=== PATIENT | male | born 1935 | race Caucasian/White ===

== ENCOUNTER 2018-01-01 04:26 | Inpatient (IN) | payer MEDICARE ==
[2018-01-01] MEDS ORDERED: Naloxone HCl 2 mg/2 ml Syringe ONE (04:28)
[2018-01-01] MEDS ORDERED: Calcium Chloride 1 GM/10 ML Abboject SYRINGE ONE (04:41)
[2018-01-01 05:28] LABS: Bilirubin Negative (Negative); Blood, Urine Negative (Negative); Clarity CLEAR (Clear); Glucose, Urine (Dipstick) Negative (Negative); Leukocyte Small (Negative); Nitrite Negative (Negative); Protein, Urine (Dipstick) Negative (Neg-Trace); Specific Gravity, Urine 1.017 (1.002-1.036); Urobilinogen 0.2 mg/dL (0.2-1.0)
[2018-01-01 05:29] LABS: #Eosinphils 0.1 thou/uL (0.0-0.7); #Lymphocytes 1.7 thou/uL (1.20-3.40); #Monocytes 0.4 thou/uL (0.11-0.59); #Neutrophils 4.6 thou/uL (1.40-6.50); %Basophils 0.2 % (0.0-1.0); %Eosinophils 1.7 % (0.0-10.0); %Lymphocytes 24.1 % (21.0-51.0); %Monocytes 6.3 % (0.0-10.0); %Neutrophils 67.8 % (42.0-75.0)
[2018-01-01 05:31] LABS: Bacteria/HPF None Seen HPF (None Seen); Hyaline Casts/LPF 0-3 HYALINE CAST LPF (0-3 Hyaline); RBC/HPF 0-3 HPF (0-3); Squamous Epithelial 0-3 HPF (0-3)
[2018-01-01 05:33] LABS: Actual Bicarbonate (HCO3a) 19.8 mEq/L (22-28); Base Excess (BEa) -3.3 mEq/L (-2.0 to +3.0); CO2 Tension 30.1 mmHg (35.0-45.0); Hematocrit-ABG 38.4 % (42.0-52.0); Hemoglobin (Hb) 13.4 g/dL (14.0-18.0); O2 Tension (PaO2) 537.8 mmHg (> 60.0); pH, Arterial 7.43 (7.35-7.45)
[2018-01-01 05:34] LABS: Analyzer IN Cardio ER; Calcium, Ionized 1.4 mmol/L (1.12-1.30); Puncture Site R FEMORAL
[2018-01-01 05:35] LABS: ALT (SGPT) 73 U/L (8-55); AST (SGOT) 68 U/L (5-34); Albumin 3.4 g/dL (3.4-4.8); Alkaline Phosphatase 60 U/L (40-150); Anion Gap 15 mmol/L (10-20); BUN (Urea Nitrogen) 16 mg/dL (8.4-25.7); Calc. Creatinine Clearance 0 mL/min (70-130); Calcium 10.6 mg/dL (7.8-10.44); Carbon Dioxide 18 mmol/L (23-31); Chloride 109 mmol/L (98-107); Estimated GFR-MDRD 60; Glucose 198 mg/dL (83-110); Potassium 3.1 mmol/L (3.5-5.1); Protein, Total 5.4 g/dL (5.8-8.1); Sodium 139 mmol/L (136-145)
[2018-01-01 05:35] LABS: ALV-art Gradient 137.575 (0-20)
[2018-01-01 05:40] LABS: CKMB 1.8 ng/mL (0-6.6); Troponin I 0.016 ng/mL (< 0.028)
[2018-01-01] MEDS ORDERED: Atropine Sulfate 1 mg/10 ml Syringe ONE (05:43)
[2018-01-01 05:49] LABS: Hemoglobin 14.1 g/dL (14.0-18.0); Mean Corpuscular Hemoglobin 32.5 pg (27.0-31.0); Mean Corpuscular Volume 95.6 fL (78.0-98.0); Mean Platelet Volume 9.7 fL (7.4-10.4); PLT Morphology Comment Appears Decreased; Platelet Count 119 thou/uL (130-400); RBC Distribution Width 12.5 % (11.5-14.5); RBC Morphology Normal; Red Blood Cell (RBC) Count 4.34 mill/uL (4.70-6.10); White Blood Cell (WBC) Count 6.7 thou/uL (4.8-10.8)
[2018-01-01 05:55] LABS: PTT 31.8 SEC (22.9-36.1)
[2018-01-01 05:56] LABS: INR-International Normal Ratio 1.2; Prothrombin Time 15.7 SEC (12.0-14.7)
[2018-01-01 06:03] LABS: D-Dimer Test 3.67 *mcg/mL (0.27-0.43)
[2018-01-01] MEDS ORDERED: Amiodarone HCl 150 MG, Admixture Fee 1 EACH in Dextrose 5% in Water 100 ML IVPB SCH (07:00)
[2018-01-01] MEDS ORDERED: Propofol 1,000 MG/100 ML VIAL IV ONE (07:22)
[2018-01-01] MEDS ORDERED: Acetaminophen 650 MG Suppository PR PRN (07:40)
[2018-01-01] MEDS ORDERED: CCU Electrolyte Replacement 1 EACH IVPB SCH (07:40)
[2018-01-01] MEDS ORDERED: Ventilator Sedation Protocol 1 EACH FS SCH (07:45)
[2018-01-01] MEDS ORDERED: Insulin Regular 300 UNITS/3 ML VIAL SC PRN (08:00)
[2018-01-01] MEDS ORDERED: DISCONTINUE PREVIOUS NARCOTIC PAIN MEDICATIONS AND BENZODIAZEPINES FS SCH (08:12)
[2018-01-01] MEDS ORDERED: Fentanyl BOLUS 250 ML IVPB PRN (08:12)
[2018-01-01] MEDS ORDERED: Propofol BOLUS 1,000 MG/100 ML VIAL IV PRN (08:12)
[2018-01-01] MEDS ORDERED: Propofol 1,000 MG/100 ML VIAL IV PRN (08:12)
[2018-01-01] MEDS ORDERED: Lorazepam 2 MG/ML VIAL SLOW IVP PRN (08:12)
[2018-01-01] MEDS ORDERED: fentaNYL Citrate/PF 2,000 MCG in Sodium Chloride 0.9% 60 ML IV SCH (08:12)
[2018-01-01] MEDS ORDERED: Potassium Chloride 40 MEQ in Sodium Chloride 0.9% 250 ML 250 ML IVPB PRN (08:14)
[2018-01-01] MEDS ORDERED: Potassium Phosphate 9 MMOL in Sodium Chloride 0.9% 100 ML IVPB PRN (08:14)
[2018-01-01] MEDS ORDERED: CCU ELECTROLYTE REPLACEMENT PROTOCOL FS PRN (08:14)
[2018-01-01] MEDS ORDERED: Potassium Phosphate 15 MMOL in Sodium Chloride 0.9% 250 ML 250 ML IV PRN (08:14)
[2018-01-01] MEDS ORDERED: Magnesium 2 GM/NS 0.9% 100 ML 2 GM in Premix Bag 1 BAG IVPB PRN (08:14)
[2018-01-01] MEDS ORDERED: Magnesium Oxide 400 MG TAB PO PRN ×2 (08:14)
[2018-01-01] MEDS ORDERED: Potassium Phosphate 12 MMOL in Sodium Chloride 0.9% 250 ML 250 ML IV PRN (08:14)
[2018-01-01] MEDS ORDERED: Potassium Chloride 20 MEQ TAB PO PRN (08:14)
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
--- NOTE | 2018-01-01 08:57 | RAD ---
SUPINE PORTABLE CHEST: Date: 01-01-18 Provided Clinical History: Cardiac arrest. FINDINGS: No comparisons. Cardiac and mediastinal silhouette is within normal limits. Lungs appear clear. Endot jeremy tube is noted with tip in the region just inferior to the thoracic inlet. Enteric catheter is noted, the proximal side hole lucency which overlies the expected location of the distal thoracic es ophagus. Right IJ central line is noted, the tip of which is noted overlying the expected location of the SVC. The supine nature of the examination is limited in sensitivity for pleural fluid and pneumo thorax. IMPRESSION: Lines and tubes as above. No evidence for an acute cardiopulmonary process. POS: [facility]
--- NOTE | 2018-01-01 08:59 | CT ---
CT ANGIOGRAM CHEST WITH IV CONTRAST AND 3D MIP RECONSTRUCTIONS: 01/01/2018 PROVIDED CLINICAL HISTORY: Atrial fibrillation and syncope. FINDINGS: Imaging was performed in the systemic and pulmonary arterial phases of IV contrast administration. T here is no evidence for central or segmental pulmonary embolus. Vascular calcification, including co ronary calcium, is seen. There is no evidence for thoracic aneurysm or dissection. There is bibasil ar dependent consolidation that may reflect atelectasis and/or pneumonitis. No pleural fluid or pneu mothorax is evident. The airway appears patent and of normal caliber. Endotracheal tube is noted, t he tip of which is above the deejay. Enteric catheter is noted, the tip of which is in the stomach, through the proximal sidehole lucency is within the distal esophagus. The visualized portions of the upper abdomen demonstrate no acute abnormality. The osseous structures demonstrate no concerning ly tic or blastic lesions. IMPRESSION: 1. No evidence for central or segmental pulmonary embolus. No evidence for aortic dissection. 2. Vascular calcification, including coronary calcium. 3. Bibasilar lung consolidation that may reflect atelectasis or infiltrate. POS: [facility]
[2018-01-01] MEDS ORDERED: Heparin 5,000 UNITS/ML VIAL SC SCH (09:00)
[2018-01-01 09:08] LABS: Lactic Acid 1.9 mmol/L (0.5-2.2)
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
[2018-01-01] MEDS ORDERED: Ondansetron HCl/PF 4 MG/2 ML Vial IVP PRN (09:21)
[2018-01-01] MEDS ORDERED: Ondansetron ODT 4 MG TAB PO PRN (09:22)
[2018-01-01] MEDS: NS 0.9% w/ 20 MEQ KCL 1,000 ML/1,000 ML BAG IV SCH ×2 (09:33→20:51)
[2018-01-01] MEDS: Cefepime 2 GM in Sodium Chloride 0.9% 100 ML IVPB SCH ×2 (09:35→20:51)
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
[2018-01-01 10:49] LABS: CKMB 5.2 ng/mL (0-6.6)
[2018-01-01 10:59] LABS: Troponin I 0.512 ng/mL (< 0.028)
[2018-01-01] MEDS ORDERED: ISOVUE-370 76%-LOCM 1 ML ONE (11:24)
[2018-01-01] MEDS: Famotidine/PF 20 mg/2ml Vial SLOW IVP SCH ×2 (12:21→21:40)
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
[2018-01-01] MEDS: Potassium Chloride 40 MEQ in Premix Bag 1 BAG IVPB PRN (12:29)
[2018-01-01 14:47] LABS: CKMB 5.1 ng/mL (0-6.6)
[2018-01-01 14:49] LABS: Troponin I 0.528 ng/mL (< 0.028)
[2018-01-01] MEDS ORDERED: Sodium Chloride 0.9% 15 ML NEB ONE (15:27)
[2018-01-01] MEDS: Enoxaparin Sodium 80 MG/0.8 ML SYRINGE SC SCH (20:50)
[2018-01-02] MEDS: Amiodarone HCl 450 MG, Admixture Fee 1 EACH in Dextrose 5% in Water 250 ML IVPB SCH ×2 (05:07→20:04)
[2018-01-02 05:22] LABS: Band 3 % (5-11); Hemoglobin 14.6 g/dL (14.0-18.0); Lymphocytes 5 % (21-51); MDiff Complete? YES; Mean Corpuscular HGB CONC 34.2 g/dL (32.0-36.0); Mean Corpuscular Hemoglobin 32.7 pg (27.0-31.0); Mean Corpuscular Volume 95.6 fL (78.0-98.0); Mean Platelet Volume 9.6 fL (7.4-10.4); Monocytes 8 % (0-10); Neutrophil 83 % (42-75); PLT Morphology Comment Appears Decreased; Platelet Count 108 thou/uL (130-400); RBC Distribution Width 12.7 % (11.5-14.5); Reactive Lymphocytes 1 % (0-10); Red Blood Cell (RBC) Count 4.45 mill/uL (4.70-6.10); White Blood Cell (WBC) Count 13.2 thou/uL (4.8-10.8)
[2018-01-02 05:34] LABS: Anion Gap 14 mmol/L (10-20); BUN (Urea Nitrogen) 10 mg/dL (8.4-25.7); Calc. Creatinine Clearance 76 mL/min (70-130); Calcium 8.2 mg/dL (7.8-10.44); Carbon Dioxide 19 mmol/L (23-31); Chloride 111 mmol/L (98-107); Estimated GFR-MDRD 81; Glucose 117 mg/dL (83-110); Potassium 4.1 mmol/L (3.5-5.1); Sodium 140 mmol/L (136-145)
[2018-01-02 08:15] LABS: Base Excess (BEa) -3.8 mEq/L (-2.0 to +3.0); CO2 Tension 29.2 mmHg (35.0-45.0); Calcium, Ionized 1.2 mmol/L (1.12-1.30); Hemoglobin (Hb) 15.5 g/dL (14.0-18.0); O2 Tension (PaO2) 100.9 mmHg (> 60.0); pH, Arterial 7.43 (7.35-7.45)
[2018-01-02 08:16] LABS: Puncture Site RRA
--- NOTE | 2018-01-02 08:28 | PRG ---
DATE OF SERVICE: 01/02/2018 This morning he is awake, more responsive. He is off sedation. Appears to be still encephalopathic. PHYSICAL EXAMINATION: VITAL SIGNS: Pulse 88, blood pressure 140/82, sats 100%. Respirations 18. His I's and O's have bee n 2124 in, 1190 out. CHEST: Chest reveals decreased breath sounds, no wheezing. CARDIAC: Normal S1, S2, no gallops. ABDOMEN: Soft. No masses. X-ray is clear. His WBC is 13.2, H&H is stable, platelet count 108, pO2 100, pCO2 27.43 on a rate of 10, 40%. His el ectrolytes are normal. Troponin is elevated. IMPRESSION: 1. Status post myocardial infarction. 2. Status post ventricular fibrillation, ventricular tachycardia. 3. Anoxic injury. 4. Respiratory failure. 5. Congestive heart failure. PLAN: Start nutrition, PT, and supportive care, empiric antibiotics. Wean when stable. One-half hour critical care time.
--- NOTE | 2018-01-02 09:41 | RAD ---
CHEST 1 VIEW: Date: 01/02/18 HISTORY: Ventilated patient. COMPARISON: Chest radiograph dated 01/01/18. FINDINGS: There is a small left effusion. Enteric tube tip just beyond the gastric GE junction. Right IJ centra l venous catheter tip in inferior SVC. IMPRESSION: New layering small left effusion. POS: C
--- NOTE | 2018-01-02 09:48 | PDOC.PN ---
- Subjective Encounter Start Date: 01/02/18 (f/u arrest) Encounter Start Time: 09:45 Subjective: Sedation off since 5:00 with eyes opening, some movement of -: right arm and leg. Pt to have cath this morning - Objective Vital Signs & Weight: Vital Signs (12 hours) Temp Pulse Resp BP 01/02/18 07:35 63 01/02/18 06:00 14 01/02/18 04:00 99.1 F 13 01/02/18 02:30 60 126/68 01/02/18 02:00 12 01/02/18 00:00 99.2 F 15 01/01/18 22:22 66 125/74 01/01/18 22:00 12 Weight Admit Weight 184 lb Weight 185 lb 14.4 oz Most Recent Monitor Data Heart Rate from ECG 69 NIBP 143/79 NIBP BP-Mean 93 Respiration from ECG 19 SpO2 100 I&O: 01/01/18 01/02/18 01/03/18 06:59 06:59 06:59 Intake Total 2124 0 Output Total 1190 0 Balance 934 0 Result Diagrams: 01/02/18 04:45 01/02/18 04:45 Additional Labs: Accuchecks 01/01/18 01/01/18 16:14 10:17 POC Glucose 124 H 130 H EKG Reviewed by me: Yes (tele - 60's sinus, pac's and pvc's currently) Phys Exam - Physical Examination Constitutional: NAD intubated eyes open to voice, eomi, pupils equal Respiratory: no wheezing, no rales Cardiovascular: RRR, no significant murmur Gastrointestinal: soft, non-tender, no distention, positive bowel sounds Musculoskeletal: no edema no spontaneous movement noted Deviation from normal: unable to assess Skin: no rash Dx/Plan (1) Cardiac arrest Code(s): I46.9 - CARDIAC ARREST, CAUSE UNSPECIFIED Status: Acute (2) Acute respiratory failure with hypoxia Code(s): J96.01 - ACUTE RESPIRATORY FAILURE WITH HYPOXIA Status: Acute (3) Cardiomyopathy Code(s): I42.9 - CARDIOMYOPATHY, UNSPECIFIED Status: Acute (4) Thrombocytopenia Code(s): D69.6 - THROMBOCYTOPENIA, UNSPECIFIED Status: Acute - Plan * s/p cardiac arrest - appreciate Cardiology consult, with plan for cath today. Pt with EF 20-25% one echo. On full dose lovenox * Intubated - appreciate Pulmonology consult * * on broad spectrum antibiotics - cultures negative thus far * * dvt prophy - full dose lovenox * gi prophy - IV famotidine * code status being clarified currently - full for now. Significant other/ April is closest to patient and reports the only person in his life. * * pt remains at high risk and in critical condition
[2018-01-02] MEDS ORDERED: Iopamidol 370 76% 100 ML VIAL ONE (10:00)
[2018-01-02] MEDS ORDERED: Sodium Chloride 0.9% 200 ML IV SCH (10:30)
[2018-01-02] MEDS ORDERED: Sodium Chloride 0.9% 1,000 ML IV SCH (10:30)
--- NOTE | 2018-01-02 10:33 | PDOC.CTH ---
Cardiology Progress Note - Subjective LHC done today shows patent LAD stents. He also has a chronically occluded LCx which fills with large epicardial collaterals from the right. He is opening his eyes and moving all 4 extremities but not following commands yet. His LV function is already improving at 35%. - Objective Vital Signs Temp Pulse Resp BP 01/02/18 07:35 63 01/02/18 06:00 14 01/02/18 04:00 99.1 F 13 01/02/18 02:30 60 126/68 01/02/18 02:00 12 01/02/18 00:00 99.2 F 15 Admit Weight 184 lb Weight 185 lb 14.4 oz 01/01/18 01/02/18 01/03/18 06:59 06:59 06:59 Intake Total 2124 0 Output Total 1190 0 Balance 934 0 - Physical Examination General/Neuro: other: (Intiubated, ) Lungs: unlabored respirations Heart: RRR Abdomen: NT/ND Extremities: other: (no edema.) - Telemetry Telemetry Rhythm: NSR - Labs Result Diagrams: 01/02/18 04:45 01/02/18 04:45 Troponin/CKMB CK-MB (CK-2) 5.1 ng/mL (0-6.6) 01/01/18 14:07 Troponin I 0.528 ng/mL (< 0.028) H* 01/01/18 14:07 - Assessment/Plan 1. VFib arrest. 2. Severe dilated CM, EF on echo at 20-25%, on LHC at 35%. 3. CAD, recent stents to LAD patent. (Jan 2017) 4. Anoxic brain injury. Slowly regaining consciousness. PLAN: - Will switch Lovenox to DVT prophylaixs. - Continue supportive care. - Once and if significant neurologic recovery will discuss with him possible AICD placement. - Will follow.
[2018-01-02] MEDS: Cefepime 2 GM in Sodium Chloride 0.9% 100 ML IVPB SCH ×2 (12:31→20:46)
[2018-01-02] MEDS: Famotidine/PF 20 mg/2ml Vial SLOW IVP SCH ×2 (12:31→20:47)
[2018-01-02] MEDS: Enoxaparin Sodium 80 MG/0.8 ML SYRINGE SC SCH ×2 (12:32→20:48)
[2018-01-02] MEDS: NS 0.9% w/ 20 MEQ KCL 1,000 ML/1,000 ML BAG IV SCH (19:11)
[2018-01-03 05:17] LABS: Anion Gap 10 mmol/L (10-20); BUN (Urea Nitrogen) 10 mg/dL (8.4-25.7); Calc. Creatinine Clearance 87 mL/min (70-130); Calcium 8.2 mg/dL (7.8-10.44); Carbon Dioxide 23 mmol/L (23-31); Chloride 110 mmol/L (98-107); Estimated GFR-MDRD Greater than 90; Glucose 110 mg/dL (83-110); Potassium 3.4 mmol/L (3.5-5.1); Sodium 140 mmol/L (136-145)
[2018-01-03 06:13] LABS: Band 19 % (5-11); Lymphocytes 2 % (21-51); MDiff Complete? YES; Mean Corpuscular HGB CONC 34.7 g/dL (32.0-36.0); Mean Corpuscular Hemoglobin 33.1 pg (27.0-31.0); Mean Corpuscular Volume 95.4 fL (78.0-98.0); Monocytes 6 % (0-10); Neutrophil 73 % (42-75); PLT Morphology Comment Appears Decreased; Platelet Count 97 thou/uL (130-400); RBC Distribution Width 12.3 % (11.5-14.5); Red Blood Cell (RBC) Count 3.94 mill/uL (4.70-6.10)
[2018-01-03] MEDS: Potassium Chloride 40 MEQ in Premix Bag 1 BAG IVPB PRN (06:44)
[2018-01-03 08:12] LABS: Actual Bicarbonate (HCO3a) 20.4 mEq/L (22-28); Base Excess (BEa) -2.6 mEq/L (-2.0 to +3.0); CO2 Tension 30.4 mmHg (35.0-45.0); O2 Tension (PaO2) 89.6 mmHg (> 60.0); pH, Arterial 7.44 (7.35-7.45)
[2018-01-03 08:13] LABS: Calcium, Ionized 1.1 mmol/L (1.12-1.30); Hemoglobin (Hb) 14.1 g/dL (14.0-18.0); Puncture Site RR
--- NOTE | 2018-01-03 09:14 | RAD ---
CHEST 1 VIEW: Date: 01/03/18 HISTORY: Ventilated patient. COMPARISON: Radiograph dated 01/01/18. FINDINGS: Patient is intubated with endotracheal tube tip above the deejay approximately 3.0 cm. Bilateral smal l effusions. Heart size upper limits of normal. No acute osseous abnormality. Enteric tube tip below diaphragm, although out of field of view. IMPRESSION: Small bilateral effusions. No significant change. POS: CET
--- NOTE | 2018-01-03 09:35 | PDOC.PN ---
- Subjective Encounter Start Date: 01/03/18 (f/u cardiac arrest) Encounter Start Time: 09:33 Subjective: Pt alert, moving arms and legs. no overnight events. -: currently on cpap - Objective Vital Signs & Weight: Vital Signs (12 hours) Temp Pulse Resp BP Pulse Ox 01/03/18 08:00 99.7 F H 70 22 H 99 01/03/18 07:49 75 113/68 01/03/18 07:00 99.7 F H 70 20 110/67 98 01/03/18 06:55 97 01/03/18 06:50 69 118/65 01/03/18 06:00 13 01/03/18 04:00 99.0 F 14 01/03/18 02:00 24 H 01/03/18 00:00 99.3 F 18 01/02/18 22:00 13 Weight Admit Weight 184 lb Weight 192 lb 10.944 oz Most Recent Monitor Data Heart Rate from ECG 65 NIBP 123/65 NIBP BP-Mean 83 Respiration from ECG 14 SpO2 99 I&O: 01/02/18 01/03/18 01/04/18 06:59 06:59 06:59 Intake Total 2124 1957 Output Total 1190 1142 155 Balance 934 815 -155 Result Diagrams: 01/03/18 04:45 01/03/18 04:45 EKG Reviewed by me: Yes (tele - sinus 70's) Phys Exam - Physical Examination Constitutional: NAD intubated pupils equal and round Respiratory: no wheezing, no rales, no rhonchi Cardiovascular: RRR, no significant murmur Gastrointestinal: soft, non-tender, no distention, positive bowel sounds Musculoskeletal: no edema Neurological: non-focal, moves all 4 limbs Deviation from normal: unable to assess Skin: no rash Dx/Plan (1) Cardiac arrest Code(s): I46.9 - CARDIAC ARREST, CAUSE UNSPECIFIED Status: Resolved (2) Acute respiratory failure with hypoxia Code(s): J96.01 - ACUTE RESPIRATORY FAILURE WITH HYPOXIA Status: Acute (3) Cardiomyopathy Code(s): I42.9 - CARDIOMYOPATHY, UNSPECIFIED Status: Acute (4) Thrombocytopenia Code(s): D69.6 - THROMBOCYTOPENIA, UNSPECIFIED Status: Acute (5) Hypokalemia Code(s): E87.6 - HYPOKALEMIA Status: Acute - Plan * * s/p cardiac arrest - appreciate Cardiology consult, EF slightly improved based on cath, remains on amiodarone and full dose lovenox * Intubated - appreciate Pulmonology consult - currently on CPAP * hypokalemia -on CCU electrolyte protocol * * Day 2 of Cefepime - blood and urine cultures negative thus far, will d/c this * * dvt prophy - full dose lovenox * gi prophy - IV famotidine * code status remains full for now. Significant other/April is closest to patient and reports the only person in his life. * * pt remains at high risk and in critical condition. * reviewed plan of care with April, no questions or furtheer needs at end of eval.
[2018-01-03] MEDS: Cefepime 2 GM in Sodium Chloride 0.9% 100 ML IVPB SCH (09:52)
[2018-01-03] MEDS: Famotidine/PF 20 mg/2ml Vial SLOW IVP SCH ×2 (09:53→20:57)
[2018-01-03] MEDS: Amiodarone HCl 450 MG, Admixture Fee 1 EACH in Dextrose 5% in Water 250 ML IVPB SCH (09:53)
[2018-01-03] MEDS: NS 0.9% w/ 20 MEQ KCL 1,000 ML/1,000 ML BAG IV SCH (10:53)
[2018-01-03] MEDS ORDERED: Enoxaparin Sodium 40 MG/0.4 ML SYRINGE SC SCH (12:15)
--- NOTE | 2018-01-03 14:09 | CON ---
DATE OF CONSULTATION: 01/02/2018 ELECTROPHYSIOLOGY CONSULTATION REPORT REFERRING PHYSICIAN: Russell Andrew MD I am seeing Mr. 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 His problems are: 1. Cardiorespiratory arrest, likely due to ventricular fibrillation. 2. Coronary artery disease with ischemic cardiomopathy. A. Prior history of myocardial infarction with subsequent stent placement about a year ago. B. Current left heart catheterization from 01/02/2018 demonstrates a 50% mid RCA lesion, patent proximal LAD stent, occluded circumflex chronically with collaterals. 3. LVEF 55% in the past, but current LVEF is at 20%-25% on echocardiogram from 01/01/2018 shows moderate enlarged right atrium, mild left atrial enlargement, mild MR, AI, mild Tricuspid regurgitation. 4. Remote history of stroke. 5. Possible acute anoxic encephalopathy, currently intubated. ALLERGIES: None. MEDICATIONS: Prior to admission included metoprolol, clopidogrel, Lipitor and aspirin. Currently, the patient is on IV amiodarone drip and well as Lovenox, famotidine, lorazepam, not on pressors. SUBJECTIVE: Mr. Nobles is intubated, sedated. History obtained from the chart. This gentleman had an unfortunate cardiac arrest witnessed by his significant other. Ambulance promptly called and resuscitation started. defibrillation and CPR was noted. Ventricular fibrillation was recommended per EMS and required a shock for resuscitation. He was intubated in the ER and remained subsequently stable on IV amiodarone drip, was intubated hence. There is no definite history of chest pains or worsening dyspnea prior to this event. SOCIAL HISTORY: The patient denies smoking, ETOH or drug use. FAMILY HISTORY: Noncontributory. OBJECTIVE: VITAL SIGNS: Blood pressure 133/74, heart rate 75, respiratory rate 16, temperature 98.6 degrees Fahrenheit. GENERAL: Alert and somewhat responding patient to verbal stimuli. NECK: Supple. Jugular veins not distended. CHEST: Coarse without crackles. CARDIOVASCULAR: Heart sounds are regular to rate and rhythm. No murmur or gallop. ABDOMEN: Benign. Bowel sounds positive. EXTREMITIES: Lower extremities without edema, clubbing or cyanosis. DATABASE: The EKGs reviewed revealing sinus rhythm, 68 beats per minute, left bundle branch block pattern in EKG. LABORATORY DATA: White cell count was 13.2, today it is 6.7, hemoglobin 14.6, platelet count is 108,000. INR 1.2. The ABG reveals pH of 7.43, pCO2 of 29, pO2 100. Sodium 140, potassium 4.1, BUN 10, creatinine 0.9. Troponin I 0.5 x2 , initial number was 0.016. The brain CT was revealing no hemorrhage or mass effect. The chest CT from yesterday reveals no embolus. Lung consolidation may reflect atelectasis or infiltrate. ASSESSMENT AND PLAN: Ms. Nobles is a pleasant 82-year-old man with history of coronary artery disease, prior stents. Although by reports from [facility], the procedure was done. At that time, his LVEF initially normal, then LVEF was 45% noted on an echocardiogram, most recent 02/06/2017. Now, he presents after a ventricular fibrillation arrest and his initial LVEF is 25%. Left heart catheterization reveals nonobstructive RCA lesion and patent LAD stents. IMPRESSION: 1. Primary ventricular fibrillation arrest. 2. Likely ischemic cardiomyopathy with history of myocardial infarction, now with stable coronary artery status. 3. Mild troponin rise, likely related to the resuscitation efforts. 4. Possible anoxic encephalopathy, evaluate after extubation. 5. Elevated WBC; likely related to the resuscitation and stress, rule out infections. PLAN: 1. Continue supportive measures. Extubate as tolerated. 2. Assess neuro function. 3. We will discuss the potential benefits of ICD implant as a secondary prophylaxis for cardiac arrest once the patient is awake and able to make decisions. Decision subsequently discussed with the patient and his significant other in the room. ZACK
--- NOTE | 2018-01-03 22:17 | PRG ---
DATE OF SERVICE: 01/03/2018 SUBJECTIVE: Daniel Nobles is awake and alert. He was intubated this morning. He is in no distress . OBJECTIVE: VITAL SIGNS: Stable. Blood pressure 123/65, heart rate 65, respiratory rate 14, oximetry is 99. He was on pressure support of 5, PEEP of 5. His minute volume is 7 liters a minute. He passed a leak test. GENERAL: He can move all his extremities. LUNGS: Clear. HEART: Regular rhythm. ABDOMEN: Soft. EXTREMITIES: Without asymmetry. LABORATORY DATA: White count 13, hemoglobin 13, platelets 97,000. Sodium 140, potassium 3.4, chloride 110, bicarbonate 23, BUN 10, creatinine 0.79. Chest radiograph was reviewed showing small bilateral effusions. Blood gas showed a pH of 7.44, pCO2 of 30, pO2 of 89. IMPRESSION: 1. Status post ventricular fibrillation arrest. 2. Ischemic cardiomyopathy. 3. Coronary artery disease with a patent proximal left anterior descending stent and occluded circum flex chronically with good collaterals and a normal ejection fraction in the past, but 20-25% this ad mission. His encephalopathy is improved and his mental status appeared to be back to near his baseline this mo rning. I felt he was a candidate for extubation. This has been done successfully and he has been cl inically stable throughout the afternoon. We will continue with care in the critical care unit. Critical care time was 30 minutes.
[2018-01-04] MEDS: Amiodarone HCl 450 MG, Admixture Fee 1 EACH in Dextrose 5% in Water 250 ML IVPB SCH ×2 (04:51→19:59)
[2018-01-04 05:39] LABS: Anion Gap 14 mmol/L (10-20); BUN (Urea Nitrogen) 10 mg/dL (8.4-25.7); Calc. Creatinine Clearance 92 mL/min (70-130); Calcium 8.4 mg/dL (7.8-10.44); Carbon Dioxide 22 mmol/L (23-31); Chloride 110 mmol/L (98-107); Estimated GFR-MDRD Greater than 90; Glucose 110 mg/dL (83-110); Potassium 3.5 mmol/L (3.5-5.1); Sodium 142 mmol/L (136-145)
[2018-01-04] MEDS: NS 0.9% w/ 20 MEQ KCL 1,000 ML/1,000 ML BAG IV SCH (05:54)
[2018-01-04 06:16] LABS: Band 7 % (5-11); Hemoglobin 13.6 g/dL (14.0-18.0); Large Platelets SLIGHT; Lymphocytes 4 % (21-51); MDiff Complete? YES; Mean Corpuscular HGB CONC 34.2 g/dL (32.0-36.0); Mean Corpuscular Hemoglobin 32.5 pg (27.0-31.0); Mean Platelet Volume 10.1 fL (7.4-10.4); Monocytes 3 % (0-10); Neutrophil 83 % (42-75); PLT Morphology Comment Appears Decreased; Platelet Count 110 thou/uL (130-400); RBC Distribution Width 12.2 % (11.5-14.5); Reactive Lymphocytes 3 % (0-10); Red Blood Cell (RBC) Count 4.17 mill/uL (4.70-6.10); White Blood Cell (WBC) Count 13.9 thou/uL (4.8-10.8)
--- NOTE | 2018-01-04 07:36 | PDOC.PN ---
- Subjective Encounter Start Date: 01/04/18 (f/u cardiac arrest) Encounter Start Time: 07:34 Subjective: Pt extubated yesterday. Oriented to person only. No focal deficits noted -: Pt thinks he is in his living room and just cooked a meal - Objective Vital Signs & Weight: Vital Signs (12 hours) Temp Pulse Resp Pulse Ox 01/04/18 07:23 97 01/04/18 07:00 98.8 F 70 21 H 97 01/04/18 04:00 99.0 F 01/04/18 00:00 98.7 F 01/03/18 20:00 98.5 F 70 23 H 94 L Weight Admit Weight 184 lb Weight 186 lb 1.122 oz Most Recent Monitor Data Heart Rate from ECG 65 NIBP 135/59 NIBP BP-Mean 75 Respiration from ECG 14 SpO2 96 I&O: 01/03/18 01/04/18 01/05/18 06:59 06:59 06:59 Intake Total 1957 1733 Output Total 1142 1044 50 Balance 815 689 -50 Result Diagrams: 01/04/18 05:10 01/04/18 05:10 Additional Labs: Accuchecks 01/04/18 01/04/18 01/03/18 05:07 00:14 18:37 POC Glucose 106 98 94 01/03/18 01/03/18 01/03/18 12:42 09:25 04:42 POC Glucose 97 99 105 01/03/18 01/02/18 01/02/18 00:15 19:25 00:08 POC Glucose 112 H 133 H 116 H EKG Reviewed by me: Yes (tele - sinus 60's) Phys Exam - Physical Examination Constitutional: NAD Respiratory: no wheezing, no rhonchi bibasilar rales with decreased breath sounds Cardiovascular: RRR, no significant murmur Gastrointestinal: soft, non-tender, no distention, positive bowel sounds Musculoskeletal: no edema Neurological: non-focal, moves all 4 limbs Deviation from normal: oriented to person only Skin: no rash Dx/Plan (1) Cardiac arrest Code(s): I46.9 - CARDIAC ARREST, CAUSE UNSPECIFIED Status: Resolved (2) Acute respiratory failure with hypoxia Code(s): J96.01 - ACUTE RESPIRATORY FAILURE WITH HYPOXIA Status: Acute (3) Encephalopathy Code(s): G93.40 - ENCEPHALOPATHY, UNSPECIFIED Status: Acute (4) Cardiomyopathy Code(s): I42.9 - CARDIOMYOPATHY, UNSPECIFIED Status: Acute (5) Thrombocytopenia Code(s): D69.6 - THROMBOCYTOPENIA, UNSPECIFIED Status: Acute (6) Hypokalemia Code(s): E87.6 - HYPOKALEMIA Status: Acute (7) Heart failure, systolic, with acute decompensation Code(s): I50.23 - ACUTE ON CHRONIC SYSTOLIC (CONGESTIVE) HEART FAILURE Status : Acute - Plan * s/p cardiac arrest - appreciate Cardiology consult, EF slightly improved based on cath, remains on amiodarone. Eventual ICD * * Extubated yesterday - appreciate Pulmonology consult - on oxygen by NC * * Pulmonary edema secondary to systolic heart failure - start IV lasix, monitor UOP. * Encephalopathy s/p cardiac arrest - monitor for change from likely anoxic injury * * hypokalemia -start scheduled potassium due to lasix initiation, and CCU electrolyte protocol * * Pt with some agitation this morning - continue to re-orient and calm. May remove maloney cathether. * * advance diet as passed the swallow study - heart healthy with fluid restriction. * * Was on Cefepime for the first 48 hours - d/c yesterday and blood cultures remain negative. UCx final and negative. * * dvt prophy - lovenox * gi prophy - d/c as advancing diet. * code status remains full for now - pt lacks capacity for decision making. Significant other not present - will discuss plan/changes as she is available. * * pt remains at high risk and in critical condition.
[2018-01-04] MEDS: Furosemide 20 MG/2 ML VIAL SLOW IVP SCH ×2 (08:37→15:58)
[2018-01-04] MEDS: Enoxaparin Sodium 40 MG/0.4 ML SYRINGE SC SCH (08:37)
[2018-01-04] MEDS: Famotidine/PF 20 mg/2ml Vial SLOW IVP SCH ×2 (08:37→20:06)
--- NOTE | 2018-01-04 11:40 | RAD ---
CHEST 1 VIEW: Date: 01/04/18 HISTORY: Ventilated patient. COMPARISON: Radiograph prior day. FINDINGS: Right IJ central venous catheter tips at the inferior SVC. Patient has been extubated. Enteric tube h as been removed. Small left effusion. Small right effusion. Moderate edema. IMPRESSION: 1. Bilateral effusions and moderate edema. The edema appears to be slightly worse. 2. Interval extubation and removal of enteric tube. 3. Nodular opacity right upper lobe may reflect a pulmonary vessel seen en face. Follow-up recommend ed. POS: RODERICK
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
--- NOTE | 2018-01-04 20:12 | PDOC.EVN ---
Event Note - Event Note Event Note: Pt has been on IV amiodarone since admission. Reviewed with Dr. Vicente and will change to 400 mg PO BID
[2018-01-04] MEDS: Amiodarone 200 MG TAB PO SCH (20:22)
[2018-01-05 05:40] LABS: Band 12 % (5-11); Hemoglobin 13.2 g/dL (14.0-18.0); Lymphocytes 6 % (21-51); MDiff Complete? YES; Mean Corpuscular HGB CONC 33.7 g/dL (32.0-36.0); Mean Corpuscular Hemoglobin 32.2 pg (27.0-31.0); Mean Corpuscular Volume 95.5 fL (78.0-98.0); Mean Platelet Volume 10.5 fL (7.4-10.4); Monocytes 7 % (0-10); Neutrophil 75 % (42-75); Platelet Count 127 thou/uL (130-400); RBC Distribution Width 12.1 % (11.5-14.5); Red Blood Cell (RBC) Count 4.09 mill/uL (4.70-6.10); White Blood Cell (WBC) Count 11.2 thou/uL (4.8-10.8)
[2018-01-05 05:47] LABS: Anion Gap 11 mmol/L (10-20); BUN (Urea Nitrogen) 14 mg/dL (8.4-25.7); Calc. Creatinine Clearance 91 mL/min (70-130); Calcium 8.5 mg/dL (7.8-10.44); Carbon Dioxide 27 mmol/L (23-31); Chloride 106 mmol/L (98-107); Estimated GFR-MDRD Greater than 90; Glucose 108 mg/dL (83-110); Potassium 3.4 mmol/L (3.5-5.1); Sodium 141 mmol/L (136-145)
[2018-01-05] MEDS: Furosemide 20 MG/2 ML VIAL SLOW IVP SCH (07:30)
[2018-01-05] MEDS: Famotidine 20 MG TAB PO SCH ×2 (08:20→22:16)
[2018-01-05] MEDS: Enoxaparin Sodium 40 MG/0.4 ML SYRINGE SC SCH (08:21)
[2018-01-05] MEDS: Amiodarone 200 MG TAB PO SCH ×2 (08:21→22:15)
[2018-01-05] MEDS: Furosemide 20 MG TAB PO SCH ×2 (10:22→14:15)
[2018-01-05] MEDS: Haloperidol Lactate 5 MG/ML VIAL IM SCH ×2 (10:25→22:17)
--- NOTE | 2018-01-05 10:35 | PRG ---
DATE OF SERVICE: 01/05/2018 SUBJECTIVE: This morning, he is awake, alert, and responsive. He was extubated, in no distress. OBJECTIVE: VITAL SIGNS: Sats are 100% on 3 liters, temperature 97, blood pressure 119/61, pulse 68. CHEST: Decreased breath sounds, no wheezing. CARDIAC: Normal S1 and S2. No gallops. ABDOMEN: Soft, no masses. LABORATORY DATA: White count 11,000, hemoglobin and hematocrit 13 and 39, platelet count is 127. IMPRESSION: 1. Status post cardiopulmonary arrest, ventricular fibrillation, ventricular tachycardia. 2. Pulmonary edema, much resolved. PLAN: ____ switch over to p.o. Lasix. PT and supportive care. He is supposed to have an AICD placed in today. We will follow.
--- NOTE | 2018-01-05 13:24 | PRG ---
DATE OF SERVICE: 01/05/2018 Mr. Nobles is doing well. He is still hallucinating so we will add Haldol at a low dose twice a day to see if this helps with his hallucinations. He is oriented intermittently to place, does not have any recollection of the events, but he is conversant and in no distress. PHYSICAL EXAMINATION: VITAL SIGNS: Heart rate 77. Blood pressure 102/65, respiratory rates in the low 20s, oximetry is 98 . Extraocular movements are full. NECK: Supple. LUNGS: Clear. HEART: Regular rhythm. ABDOMEN: Soft and nontender. EXTREMITIES: Without clubbing, cyanosis, or edema. LABORATORY DATA: White count 11.2, hemoglobin 13.2, platelets 127. Sodium 141, potassium 3.4, chlor magalys 106, bicarb 27, BUN 14, creatinine 0.7. IMPRESSION: Status post ventricular fibrillation arrest, clinically stable. He will have a LifeVest at discharge to rehab and then the painting and coating worker will place a defibrill ator at a later date. Haldol 5 mg IM twice a day has been added.
--- NOTE | 2018-01-05 13:51 | PDOC.PN ---
- Subjective Encounter Start Date: 01/05/18 Encounter Start Time: 14:15 -: old records requested/rev Pt seen and examined, chart reviewed in its entirety, this is my first visit with this patient for this encounter followup for OOH arrest and ROSC, extubated 01/03. pt resting, difficult to waken, unable ot get him to respond No acute events overnight ROS not obtainable - Objective Resuscitation Status: Resuscitation Status DNR:Do Not Resuscitate MAR Reviewed: Yes Vital Signs & Weight: Vital Signs (12 hours) Temp Pulse Pulse Pulse Resp BP BP 01/05/18 11:00 98.0 F 01/05/18 10:37 75 75 108/70 113/68 01/05/18 10:14 01/05/18 08:00 97.8 F 01/05/18 07:03 98.5 F 56 L 20 01/05/18 07:00 98.5 F 01/05/18 04:00 98.2 F Pulse Ox Pulse Ox Pulse Ox 01/05/18 11:00 01/05/18 10:37 100 98 01/05/18 10:14 95 01/05/18 08:00 01/05/18 07:03 100 01/05/18 07:00 01/05/18 04:00 Weight Admit Weight 184 lb Weight 178 lb 5.648 oz Most Recent Monitor Data Heart Rate from ECG 71 NIBP 102/65 NIBP BP-Mean 75 Respiration from ECG 21 SpO2 98 I&O: 01/04/18 01/05/18 01/06/18 06:59 06:59 06:59 Intake Total 1733 1219 665 Output Total 1048 2685 900 Balance 689 -1466 -235 Result Diagrams: 01/05/18 05:16 01/05/18 05:16 Additional Labs: Accuchecks 01/05/18 01/04/18 01/04/18 11:23 22:09 18:29 POC Glucose 68 L 103 155 H Radiology Reviewed by me: Yes EKG Reviewed by me: Yes Phys Exam - Physical Examination Constitutional: NAD HEENT: PERRLA, moist MMs, sclera anicteric, oral pharynx no lesions Neck: no nodes, no JVD, supple, full ROM Respiratory: no wheezing, no rales, no rhonchi, clear to auscultation bilateral Cardiovascular: RRR, no significant murmur, no rub Gastrointestinal: soft, non-tender, no distention, positive bowel sounds Musculoskeletal: pulses present, edema present Neurological: non-focal, normal sensation, moves all 4 limbs Lymphatic: no nodes Deviation from normal: sleeping, not able to awaken Skin: no rash, normal turgor, cap refill <2 seconds Dx/Plan (1) Acute respiratory failure with hypoxia Code(s): J96.01 - ACUTE RESPIRATORY FAILURE WITH HYPOXIA Status: Acute (2) Cardiomyopathy Code(s): I42.9 - CARDIOMYOPATHY, UNSPECIFIED Status: Acute Qualifiers: Cardiomyopathy type: unspecified Qualified Code(s): I42.9 - Cardiomyopathy , unspecified (3) Encephalopathy Code(s): G93.40 - ENCEPHALOPATHY, UNSPECIFIED Status: Acute (4) Heart failure, systolic, with acute decompensation Code(s): I50.23 - ACUTE ON CHRONIC SYSTOLIC (CONGESTIVE) HEART FAILURE Status : Acute (5) Hypokalemia Code(s): E87.6 - HYPOKALEMIA Status: Acute (6) Thrombocytopenia Code(s): D69.6 - THROMBOCYTOPENIA, UNSPECIFIED Status: Acute (7) Cardiac arrest Code(s): I46.9 - CARDIAC ARREST, CAUSE UNSPECIFIED Status: Resolved - Plan cont current plan of care, PT/OT, professor of social work, DVT proph w/lovenox * .
--- NOTE | 2018-01-05 16:50 | PRG ---
DATE OF SERVICE: 01/05/2018 SUBJECTIVE: Mr. Nobles seems to be doing better over the weekend, he was extubated and today he is able to state that he is in the hospital, although he got the time wrong still and also not aware of the actual date and time, he does know his name. According to his friend, he is having good long-ter m memory is returning, but short-term memory is still somewhat limited. any new chest pain sym ptoms. No fever, chills, or cough. No stroke-like symptoms, no neurological deficits. No PND or or thopnea and rest of 12-point system otherwise unremarkable. OBJECTIVE: VITAL SIGNS: Blood pressure is 102/65, heart rate 75, respirations 12. The patient is afebrile. GENERAL: Alert and oriented man in no apparent distress.e NECK: Supple. Jugular veins not distended. CHEST: Coarse without crackles. CARDIOVASCULAR: Heart sounds are regular to rate and rhythm. No murmur or gallop. ABDOMEN: Benign. Bowel sounds positive. EXTREMITIES: Lower extremities without edema, clubbing, or cyanosis. LABORATORY DATA: White cell count 11.2, hemoglobin 10.2, platelet count is 127. Sodium 141, potassi um 3.4, BUN is 14, and creatinine 0.76, Telemetry strips reveal sinus rhythm. No significant medical arrhythmias. QT is not significantly p rolonged. ASSESSMENT AND PLAN: Mr. Nobles is an 82-year-old unfortunate man with history of a ventricular fib rillation arrest, requiring a ACS and resuscitation as well as defibrillation on the field. He had a mild anoxic encephalopathy now though improving, still not completely oriented yet. We discussed the treatment options with the patient as well as his friend present. I did detail the pros and cons of ICD implantation. At this point, he is not completely able to make his own decision s yet. On the other hand, his closest blood relatives are not involved in his care. For now, we abbey l continue to monitor him for return of his full decision making capacity with full orientation. At that point, he will make decisions about the ICD implant in the meantime if discharge necessary LifeV est recommended, tapering dose of amiodarone also will be advised. We will follow with you.
--- NOTE | 2018-01-05 17:56 | PDOC.CTH ---
Cardiology Progress Note - Subjective He is doing better. Wide awake and conversing but still confused and not at baseline. - Objective Vital Signs Temp Pulse Pulse Pulse Resp BP BP 01/05/18 15:41 98.2 F 01/05/18 11:00 98.0 F 01/05/18 10:37 75 75 108/70 113/68 01/05/18 10:14 01/05/18 08:00 97.8 F 01/05/18 07:03 98.5 F 56 L 20 01/05/18 07:00 98.5 F Pulse Ox Pulse Ox Pulse Ox 01/05/18 15:41 01/05/18 11:00 01/05/18 10:37 100 98 01/05/18 10:14 95 01/05/18 08:00 01/05/18 07:03 100 01/05/18 07:00 Admit Weight 184 lb Weight 178 lb 5.648 oz 01/04/18 01/05/18 01/06/18 06:59 06:59 06:59 Intake Total 1733 1219 905 Output Total 1041 8445 1080 Balance 423 -7013 -852 - Physical Examination General/Neuro: NAD Neck: no JVD present Lungs: CTA, unlabored respirations Heart: RRR Abdomen: NT/ND Extremities: other: (no edema.) - Telemetry Telemetry Rhythm: NSR - Labs Result Diagrams: 01/05/18 05:16 01/05/18 05:16 Troponin/CKMB CK-MB (CK-2) 5.1 ng/mL (0-6.6) 01/01/18 14:07 Troponin I 0.528 ng/mL (< 0.028) H* 01/01/18 14:07 - Assessment/Plan 1. VFib arrest. 2. Severe dilated CM, EF on echo at 20-25%, on LHC at 35%. 3. CAD, recent stents to LAD patent. (Jan 2017) 4. Anoxic brain injury. Slowly regaining consciousness. PLAN: - Will order a lifevest for him for now as he is not sure about an AICD at the time. - There is no family involved, he has his girlfriend for the last 4(four) yrs and a friend that has known him for the last 40(forty) yrs. - He would certainly benefit from an AICD and talking to him the one thing he is certain of is that he does not want to and he wants to do everything he can to avoid this from happening. - They all agree on starting set up for a lifevest. - Replace K to above 4.0
[2018-01-06 04:24] LABS: Anion Gap 15 mmol/L (10-20); BUN (Urea Nitrogen) 13 mg/dL (8.4-25.7); Calc. Creatinine Clearance 75 mL/min (70-130); Calcium 8.6 mg/dL (7.8-10.44); Carbon Dioxide 25 mmol/L (23-31); Chloride 104 mmol/L (98-107); Estimated GFR-MDRD 83; Glucose 108 mg/dL (83-110); Potassium 3.5 mmol/L (3.5-5.1); Sodium 140 mmol/L (136-145)
[2018-01-06 04:26] LABS: Band 2 % (5-11); Eosinophils 1 % (0-10); Hemoglobin 14.3 g/dL (14.0-18.0); Lymphocytes 8 % (21-51); MDiff Complete? YES; Mean Corpuscular HGB CONC 33.4 g/dL (32.0-36.0); Mean Corpuscular Volume 95.7 fL (78.0-98.0); Monocytes 10 % (0-10); Neutrophil 79 % (42-75); Platelet Count 154 thou/uL (130-400); RBC Distribution Width 12.3 % (11.5-14.5); Red Blood Cell (RBC) Count 4.49 mill/uL (4.70-6.10); White Blood Cell (WBC) Count 9.3 thou/uL (4.8-10.8)
[2018-01-06] MEDS: Enoxaparin Sodium 40 MG/0.4 ML SYRINGE SC SCH (08:21)
[2018-01-06] MEDS: Potassium Chloride 20 MEQ TAB PO SCH ×2 (08:22→17:48)
[2018-01-06] MEDS: Furosemide 20 MG TAB PO SCH ×2 (08:23→14:35)
[2018-01-06] MEDS: Famotidine 20 MG TAB PO SCH ×2 (08:23→22:22)
[2018-01-06] MEDS: Amiodarone 200 MG TAB PO SCH ×2 (08:23→22:22)
--- NOTE | 2018-01-06 09:04 | RAD ---
AP VIEW CHEST: Date: 01/06/18 HISTORY: Congestive heart failure. FINDINGS: Comparison made to previous exam from 01/04/18. AP view of chest demonstrates removal of the right jugular central line. EKG lead seen over the chest . Pulmonary vascular congestion is seen. There are areas of patchy air space opacity in the left lung base compatible with areas of left lower lobe atelectasis or pneumonia. Some minimal areas of air space opacity also seen in the right upper lobe. These appear to be likely area of scar. IMPRESSION: Area of patchy density in the left lung base compatible with areas of left lower lobe atelectasis or pneumonia. A tiny left-sided pleural effusion is also seen. POS: C
--- NOTE | 2018-01-06 13:16 | PDOC.PN ---
- Subjective Encounter Start Date: 01/06/18 Encounter Start Time: 10:50 pt more awake today, not agitated. no acute events overnight No f/C, no n/V/d/C, no CP or SOB All systems reviewed and neg x as above - Objective Resuscitation Status: Resuscitation Status DNR:Do Not Resuscitate MAR Reviewed: Yes Vital Signs & Weight: Vital Signs (12 hours) Temp Pulse Resp Pulse Ox 01/06/18 08:00 97.4 F L 62 16 96 01/06/18 04:00 99.0 F Weight Admit Weight 184 lb Weight 2.829 oz Most Recent Monitor Data Heart Rate from ECG 71 NIBP 96/64 NIBP BP-Mean 71 Respiration from ECG 23 SpO2 100 I&O: 01/05/18 01/06/18 01/07/18 06:59 06:59 06:59 Intake Total 1219 1105 480 Output Total 9745 1948 550 [facility] -1466 -843 -70 Result Diagrams: 01/06/18 03:37 01/06/18 03:37 Additional Labs: Accuchecks 01/06/18 01/05/18 11:38 17:31 POC Glucose 83 94 Phys Exam - Physical Examination Constitutional: NAD HEENT: PERRLA, moist MMs, sclera anicteric, oral pharynx no lesions Neck: no nodes, no JVD, supple, full ROM Respiratory: no wheezing, no rales, no rhonchi, clear to auscultation bilateral Cardiovascular: no significant murmur, no rub, irregular Gastrointestinal: soft, non-tender, no distention, positive bowel sounds Musculoskeletal: pulses present, edema present Neurological: non-focal, normal sensation, moves all 4 limbs Lymphatic: no nodes Psychiatric: normal affect Skin: no rash, normal turgor, cap refill <2 seconds Dx/Plan (1) Cardiac arrest Code(s): I46.9 - CARDIAC ARREST, CAUSE UNSPECIFIED Status: Resolved (2) Acute respiratory failure with hypoxia Code(s): J96.01 - ACUTE RESPIRATORY FAILURE WITH HYPOXIA Status: Resolved (3) Cardiomyopathy Code(s): I42.9 - CARDIOMYOPATHY, UNSPECIFIED Status: Acute Qualifiers: Cardiomyopathy type: unspecified Qualified Code(s): I42.9 - Cardiomyopathy , unspecified (4) Encephalopathy Code(s): G93.40 - ENCEPHALOPATHY, UNSPECIFIED Status: Acute (5) Heart failure, systolic, with acute decompensation Code(s): I50.23 - ACUTE ON CHRONIC SYSTOLIC (CONGESTIVE) HEART FAILURE Status : Acute (6) Hypokalemia Code(s): E87.6 - HYPOKALEMIA Status: Acute (7) Thrombocytopenia Code(s): D69.6 - THROMBOCYTOPENIA, UNSPECIFIED Status: Acute - Plan cont current plan of care, PT/OT, out of bed/ambulate * .
--- NOTE | 2018-01-06 13:26 | PRG ---
DATE OF SERVICE: 01/06/2018 SUBJECTIVE: Mr. Nobles remained encephalopathic the ICU, but in no distress. OBJECTIVE: VITAL SIGNS: Blood pressure 114/52, sats are 96 in 3 litersRESP 20_ pulse 80. CHEST: Chest reveals decreased breath sounds, no wheezing. CARDIAC: Normal S1, S2. No gallops. ABDOMEN: Soft, no masses. LABORATORY DATA: Blood culture growing a gram positive tania is probably a contamination. IMPRESSION: 1. Status post ventricular tachycardia, ventricular fibrillation. 2. Respiratory failure. 3. Congestive heart failure. 4. Metabolic encephalopathy. PLAN: Continue observation in the ICU. Further disposition as per Cardiology. PT and supportive care. Avoid excessive sedation. MTDD
--- NOTE | 2018-01-06 16:17 | PDOC.CTH ---
<Nayeli Walton - Last Filed: 01/06/18 16:11> Cardiology Progress Note - Subjective EP progress note: Patient seen and evaluated. No new cardiac concerns or complaints. Disoriented and confused. Unable to obtain accurate ROS - ROS not able to obtain ROS - Objective Vital Signs Temp Pulse Resp BP Pulse Ox 01/06/18 15:45 97.8 F 68 16 93 L 01/06/18 15:15 97.8 F 68 16 124/65 93 L 01/06/18 13:00 98.1 F 01/06/18 08:00 97.4 F L 62 16 96 Admit Weight 184 lb Weight 2.829 oz 01/05/18 01/06/18 01/07/18 06:59 06:59 06:59 Intake Total 1219 1105 650 Output Total 5773 0572 750 Balance -1466 -843 -100 - Physical Examination General/Neuro: NAD Neck: no JVD present Lungs: CTA, unlabored respirations Heart: PMI normal, RRR Abdomen: NT/ND, soft - Telemetry Telemetry Rhythm: NSR - Labs Result Diagrams: 01/06/18 03:37 01/06/18 03:37 Troponin/CKMB CK-MB (CK-2) 5.1 ng/mL (0-6.6) 01/01/18 14:07 Troponin I 0.528 ng/mL (< 0.028) H* 01/01/18 14:07 - Assessment/Plan 1. Recent VF arrest 2. ischemic cardiomyopathy 3. Mild troponin elevation, likely related to CPR 4. Anoxic encephalopathy, recalling some accurate details from remote past but completely disoriented possibly with some expressive aphasia. Definite candidate for ICD post VF cardiac arrest but unable to consent himself. No MPOA has been appointed. If he can demonstrate appropriate use of Lifevest, he will need one upon discharge if ICD has not been placed. Reportedly , attempts are being made to find a medical decision maker. <Shailesh Martines - Last Filed: 01/07/18 09:10> Cardiology Progress Note - Objective Vital Signs Temp Pulse Resp BP Pulse Ox 01/07/18 08:00 97.5 F L 65 18 133/78 92 L 01/07/18 04:00 98.1 F 66 14 128/67 93 L 01/06/18 22:22 98.1 F 64 14 93 L Admit Weight 184 lb Weight 168 lb 6.4 oz 01/06/18 01/07/18 01/08/18 06:59 06:59 06:59 Intake Total 1105 920 Output Total 1948 750 Balance -843 170 - Labs Result Diagrams: 01/07/18 05:13 01/07/18 05:14 Troponin/CKMB CK-MB (CK-2) 5.1 ng/mL (0-6.6) 01/01/18 14:07 Troponin I 0.528 ng/mL (< 0.028) H* 01/01/18 14:07 Attending Addendum - Attending Addendum Date/Time: 01/07/18 09 I personally evaluated the patient and discussed the management with Ms Walton. I agree with the History, Examination, Assessment and Plan documented above with any addition or exceptions noted below.
--- NOTE | 2018-01-06 18:33 | PDOC.CTH ---
Cardiology Progress Note - Subjective No new issues. Remains confused but girlfriend states he is making slow progress. he tried to get up yesterday and he fell and has a laceration to his forehead with a small hematoma around it. - Objective Vital Signs Temp Pulse Resp BP Pulse Ox 01/06/18 15:45 97.8 F 68 16 93 L 01/06/18 15:15 97.8 F 68 16 124/65 93 L 01/06/18 13:00 98.1 F 01/06/18 08:00 97.4 F L 62 16 96 Admit Weight 184 lb Weight 2.829 oz 01/05/18 01/06/18 01/07/18 06:59 06:59 06:59 Intake Total 1219 1105 650 Output Total 2704 5743 750 Balance -8366 -843 -100 - Physical Examination General/Neuro: NAD, other: (Alert, awake, oriented to person only.) Neck: no JVD present Lungs: CTA, unlabored respirations Heart: RRR Abdomen: NT/ND Extremities: other: (no edema.) - Telemetry Telemetry Rhythm: NSR - Labs Result Diagrams: 01/06/18 03:37 01/06/18 03:37 Troponin/CKMB CK-MB (CK-2) 5.1 ng/mL (0-6.6) 01/01/18 14:07 Troponin I 0.528 ng/mL (< 0.028) H* 01/01/18 14:07 - Assessment/Plan 1. VFib arrest. 2. Severe dilated CM, EF on echo at 20-25%, on LHC at 35%. 3. CAD, recent stents to LAD patent. (Jan 2017) 4. Anoxic brain injury. Slowly regaining consciousness. PLAN: - Will need lifevest. 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 - AICD once able to consent. - May transfer to floor.
[2018-01-06] MEDS: risperiDONE 0.25 MG TAB PO SCH (22:23)
[2018-01-07 05:44] LABS: Anion Gap 14 mmol/L (10-20); BUN (Urea Nitrogen) 13 mg/dL (8.4-25.7); Calc. Creatinine Clearance 0 mL/min (70-130); Calcium 8.9 mg/dL (7.8-10.44); Carbon Dioxide 25 mmol/L (23-31); Chloride 105 mmol/L (98-107); Estimated GFR-MDRD 84; Glucose 89 mg/dL (83-110); Potassium 3.8 mmol/L (3.5-5.1); Sodium 140 mmol/L (136-145)
[2018-01-07 05:56] LABS: Band 7 % (5-11); Eosinophils 1 % (0-10); Hemoglobin 14.6 g/dL (14.0-18.0); Lymphocytes 17 % (21-51); MDiff Complete? YES; Mean Corpuscular HGB CONC 33.7 g/dL (32.0-36.0); Mean Corpuscular Hemoglobin 32.3 pg (27.0-31.0); Mean Corpuscular Volume 95.6 fL (78.0-98.0); Monocytes 12 % (0-10); Neutrophil 62 % (42-75); Platelet Count 172 thou/uL (130-400); RBC Distribution Width 12.4 % (11.5-14.5); Red Blood Cell (RBC) Count 4.52 mill/uL (4.70-6.10)
--- NOTE | 2018-01-07 08:14 | PRG ---
DATE OF SERVICE: 01/07/2018 SUBJECTIVE: This morning, awake, alert, responsive, in no distress. OBJECTIVE: VITAL SIGNS: Sats are 90% on room air, respirations 14, temperature 98, blood pressure 130/74. CHEST: No wheezing or crackles. CARDIAC: Normal S1 and S2. No gallops. ABDOMEN: Soft, no masses. LABORATORY DATA: Blood culture, gram positive tania is probably a contamination. ASSESSMENT: 1. Status post cardiac arrest. 2. Respiratory failure. 3. Ventricular tachycardia. PLAN: The patient is scheduled to have AICD placed in when okay with Cardiology. Otherwise, continue PT and supportive care. Continue empiric antibiotics.
[2018-01-07] MEDS: Furosemide 20 MG TAB PO SCH ×2 (09:30→14:40)
[2018-01-07] MEDS: Amiodarone 200 MG TAB PO SCH ×2 (09:30→20:23)
[2018-01-07] MEDS: Famotidine 20 MG TAB PO SCH ×2 (09:30→20:23)
[2018-01-07] MEDS: Potassium Chloride 20 MEQ TAB PO SCH ×2 (09:30→17:07)
[2018-01-07] MEDS: Enoxaparin Sodium 40 MG/0.4 ML SYRINGE SC SCH (09:31)
--- NOTE | 2018-01-07 13:55 | PDOC.PN ---
- Subjective Encounter Start Date: 01/07/18 Encounter Start Time: 08:30 PT more awake, talks normall,y but confused when asked questions. combative overnight, no gown on. discussed with EP - pt not likely to leave life vest on , would favor inpatient monitoring while we get consent arranged for AICD implantation no F/C, no CP or sOb, no N/V/d/C, monster po all systems reviewed and neg except as above - Objective Resuscitation Status: Resuscitation Status DNR:Do Not Resuscitate MAR Reviewed: Yes Vital Signs & Weight: Vital Signs (12 hours) Temp Pulse Resp BP Pulse Ox 01/07/18 08:00 97.5 F L 65 18 133/78 93 L 01/07/18 04:00 98.1 F 66 14 128/67 93 L Weight Admit Weight 184 lb Weight 168 lb 6.4 oz Most Recent Monitor Data Heart Rate from ECG 69 NIBP 105/61 NIBP BP-Mean 90 Respiration from ECG 23 SpO2 93 I&O: 01/06/18 01/07/18 01/08/18 06:59 06:59 06:59 Intake Total 1105 920 Output Total 1948 750 Balance -843 170 Result Diagrams: 01/07/18 05:13 01/07/18 05:14 Additional Labs: Accuchecks 01/07/18 01/07/18 01/07/18 12:14 05:56 00:25 POC Glucose 98 95 98 EKG Reviewed by me: Yes Phys Exam - Physical Examination Constitutional: NAD HEENT: PERRLA, moist MMs, sclera anicteric, oral pharynx no lesions Neck: no nodes, no JVD, supple, full ROM Respiratory: no wheezing, no rales, no rhonchi, clear to auscultation bilateral Cardiovascular: RRR, no significant murmur, no rub Gastrointestinal: soft, non-tender, no distention, positive bowel sounds Musculoskeletal: no edema, pulses present Neurological: non-focal, normal sensation, moves all 4 limbs Lymphatic: no nodes Psychiatric: normal affect Deviation from normal: oriented to person only Skin: no rash, normal turgor, cap refill <2 seconds Dx/Plan (1) Cardiac arrest Code(s): I46.9 - CARDIAC ARREST, CAUSE UNSPECIFIED Status: Resolved (2) Acute respiratory failure with hypoxia Code(s): J96.01 - ACUTE RESPIRATORY FAILURE WITH HYPOXIA Status: Resolved (3) Cardiomyopathy Code(s): I42.9 - CARDIOMYOPATHY, UNSPECIFIED Status: Acute Qualifiers: Cardiomyopathy type: unspecified Qualified Code(s): I42.9 - Cardiomyopathy , unspecified (4) Encephalopathy Code(s): G93.40 - ENCEPHALOPATHY, UNSPECIFIED Status: Acute Comment: likely anoxic injury, slowly improving (5) Heart failure, systolic, with acute decompensation Code(s): I50.23 - ACUTE ON CHRONIC SYSTOLIC (CONGESTIVE) HEART FAILURE Status : Acute (6) Hypokalemia Code(s): E87.6 - HYPOKALEMIA Status: Acute (7) Thrombocytopenia Code(s): D69.6 - THROMBOCYTOPENIA, UNSPECIFIED Status: Acute - Plan cont current plan of care, plan discussed w/ family, PT/OT, respiratory therapy , out of bed/ambulate * . hold off on life vest for now, CM and PC working to get AICD consent
--- NOTE | 2018-01-07 16:44 | PDOC.CTH ---
<Nayeli Walton - Last Filed: 01/07/18 16:12> Cardiology Progress Note - Subjective EP progress note: Patient eating in bed. Significant other, bedside. Patient was reportedly confused, combative, and aggressive overnight. Unable to complete ROS due to mental status. - Objective Vital Signs Temp Pulse Resp BP Pulse Ox 01/07/18 08:00 97.5 F L 65 18 133/78 93 L Admit Weight 184 lb Weight 168 lb 6.4 oz 01/06/18 01/07/18 01/08/18 06:59 06:59 06:59 Intake Total 1105 920 Output Total 1948 750 Balance -843 170 - Physical Examination General/Neuro: NAD, other: (A/Ox name and . Not to location, year, president. etc) Neck: no JVD present Lungs: CTA, unlabored respirations Heart: PMI normal, RRR Abdomen: no HSM, NT/ND, soft - Telemetry Telemetry Rhythm: NSR - Labs Result Diagrams: 01/07/18 05:13 01/07/18 05:14 Troponin/CKMB CK-MB (CK-2) 5.1 ng/mL (0-6.6) 01/01/18 14:07 Troponin I 0.528 ng/mL (< 0.028) H* 01/01/18 14:07 - Assessment/Plan 1. Recent VF arrest 2. ischemic cardiomyopathy 3. Mild troponin elevation, likely related to CPR 4. Anoxic encephalopathy, recalling some accurate details from remote past but completely disoriented possibly with some expressive aphasia. Definite candidate for ICD post VF cardiac arrest but unable to consent with his confusion. No MPOA has been appointed as of yet. In the interim, he could get a lifevest as long as he is supervised although I have significant reservations about placing a life vest on a confused patient with recurrent episodes of agitation and combativeness. Reportedly, attempts are being made to find a medical decision maker. <Shailesh Martines - Last Filed: 01/07/18 18:01> Cardiology Progress Note - Objective Vital Signs Temp Pulse Resp BP BP Pulse Ox 01/07/18 16:30 98 F 64 16 117/60 91 L 01/07/18 12:00 98.1 F 69 16 129/74 93 L 01/07/18 08:00 97.5 F L 65 18 133/78 93 L Admit Weight 184 lb Weight 168 lb 6.4 oz 01/06/18 01/07/18 01/08/18 06:59 06:59 06:59 Intake Total 1105 920 Output Total 1948 750 Balance -843 170 - Labs Result Diagrams: 01/07/18 05:13 01/07/18 05:14 Troponin/CKMB CK-MB (CK-2) 5.1 ng/mL (0-6.6) 01/01/18 14:07 Troponin I 0.528 ng/mL (< 0.028) H* 01/01/18 14:07 Attending Addendum - Attending Addendum Date/Time: 01/07/18 1800 I personally evaluated the patient and discussed the management with Ms Walton. I agree with the History, Examination, Assessment and Plan documented above with any addition or exceptions noted below.
--- NOTE | 2018-01-07 18:05 | PDOC.CTH ---
Cardiology Progress Note - Subjective He remains confused. - Objective Vital Signs Temp Pulse Resp BP BP Pulse Ox 01/07/18 16:30 98 F 64 16 117/60 91 L 01/07/18 12:00 98.1 F 69 16 129/74 93 L 01/07/18 08:00 97.5 F L 65 18 133/78 93 L Admit Weight 184 lb Weight 168 lb 6.4 oz 01/06/18 01/07/18 01/08/18 06:59 06:59 06:59 Intake Total 1105 920 Output Total 1948 750 Balance -843 170 - Physical Examination General/Neuro: NAD Neck: no JVD present Lungs: unlabored respirations Heart: RRR Abdomen: NT/ND Extremities: other: (no edema.) - Telemetry Telemetry Rhythm: NSR - Labs Result Diagrams: 01/07/18 05:13 01/07/18 05:14 Troponin/CKMB CK-MB (CK-2) 5.1 ng/mL (0-6.6) 01/01/18 14:07 Troponin I 0.528 ng/mL (< 0.028) H* 01/01/18 14:07 - Assessment/Plan 1. VFib arrest. 2. Severe dilated CM, EF on echo at 20-25%, on LHC at 35%. 3. CAD, recent stents to LAD patent. (Jan 2017) 4. Anoxic brain injury. Slowly regaining consciousness. PLAN: - Not a candidate for lifevest, he is not following commands and is unable to manage the device. - His only options are now AICD placement or conservative therapy. - Family has been contacted and decision will be made soon. - Will need placement. - Needs a sitter in the room 24 hrs. - Amio load at 3000 mg now. Will need Amio 400mg BID for the next 8 days. Then down to 200 mg daily.
[2018-01-07] MEDS: risperiDONE 0.25 MG TAB PO SCH (20:23)
[2018-01-08 05:47] LABS: Anion Gap 12 mmol/L (10-20); BUN (Urea Nitrogen) 15 mg/dL (8.4-25.7); Calc. Creatinine Clearance 58 mL/min (70-130); Carbon Dioxide 27 mmol/L (23-31); Chloride 105 mmol/L (98-107); Estimated GFR-MDRD 66; Glucose 94 mg/dL (83-110); Potassium 4.4 mmol/L (3.5-5.1); Sodium 140 mmol/L (136-145)
[2018-01-08 05:50] LABS: Band 3 % (5-11); Eosinophils 2 % (0-10); Hemoglobin 14.4 g/dL (14.0-18.0); Lymphocytes 21 % (21-51); MDiff Complete? YES; Mean Corpuscular HGB CONC 32.9 g/dL (32.0-36.0); Mean Corpuscular Hemoglobin 31.4 pg (27.0-31.0); Mean Corpuscular Volume 95.4 fL (78.0-98.0); Mean Platelet Volume 8.6 fL (7.4-10.4); Monocytes 8 % (0-10); Neutrophil 66 % (42-75); PLT Morphology Comment Appears Adequate; Platelet Count 218 thou/uL (130-400); RBC Distribution Width 12.7 % (11.5-14.5); Red Blood Cell (RBC) Count 4.59 mill/uL (4.70-6.10); White Blood Cell (WBC) Count 8.8 thou/uL (4.8-10.8)
[2018-01-08] MEDS: Amiodarone 200 MG TAB PO SCH ×2 (11:09→21:20)
[2018-01-08] MEDS: Potassium Chloride 20 MEQ TAB PO SCH ×2 (11:09→21:21)
[2018-01-08] MEDS: Famotidine 20 MG TAB PO SCH ×2 (11:09→21:21)
[2018-01-08] MEDS: Furosemide 20 MG TAB PO SCH ×2 (11:09→13:25)
[2018-01-08] MEDS: Enoxaparin Sodium 40 MG/0.4 ML SYRINGE SC SCH (11:13)
[2018-01-08] MEDS ORDERED: Iopamidol 370 76% 50 ML VIAL FS ONE (11:23)
--- NOTE | 2018-01-08 12:56 | PDOC.PN ---
- Subjective Encounter Start Date: 01/08/18 Encounter Start Time: 11:45 Pt somnolent this AM, slept all night, no agitation. got seroquel and riseprdal last evening. finally woke up, able ot stand with PT. Consent for AICD obtained, pt going at 1700 fo rit, still ocnfused. No f/C, no N/V/d/C, no cp or SOB. all systems reviewed and neg except as above - Objective Resuscitation Status: Resuscitation Status DNR:Do Not Resuscitate MAR Reviewed: Yes Vital Signs & Weight: Vital Signs (12 hours) Temp Pulse Pulse Resp BP BP BP 01/08/18 10:16 64 104/64 01/08/18 07:46 96.9 F L 58 L 14 138/65 01/08/18 07:00 96.9 F L 58 L 14 01/08/18 04:00 97.6 F 58 L 20 150/72 H Pulse Ox 01/08/18 10:16 01/08/18 07:46 92 L 01/08/18 07:00 93 L 01/08/18 04:00 92 L Weight Admit Weight 184 lb Weight 169 lb 6.4 oz Most Recent Monitor Data Heart Rate from ECG 69 NIBP 105/61 NIBP BP-Mean 90 Respiration from ECG 23 SpO2 93 I&O: 01/07/18 01/08/18 01/09/18 06:59 06:59 06:59 Intake Total 920 990 Output Total 750 Balance 170 990 Result Diagrams: 01/08/18 05:18 01/08/18 05:18 Additional Labs: Accuchecks 01/08/18 01/07/18 01/07/18 01:29 23:36 18:06 POC Glucose 122 H 130 H 84 EKG Reviewed by me: Yes Phys Exam - Physical Examination Constitutional: NAD HEENT: PERRLA, moist MMs, sclera anicteric, oral pharynx no lesions Neck: no nodes, no JVD, supple, full ROM Respiratory: no wheezing, no rales, clear to auscultation bilateral Cardiovascular: RRR, no significant murmur, no rub Gastrointestinal: soft, non-tender, no distention, positive bowel sounds Musculoskeletal: pulses present, edema present Neurological: non-focal, normal sensation, moves all 4 limbs Lymphatic: no nodes Psychiatric: normal affect Skin: no rash, normal turgor, cap refill <2 seconds Dx/Plan (1) Cardiac arrest Code(s): I46.9 - CARDIAC ARREST, CAUSE UNSPECIFIED Status: Resolved Comment : Sustained V Tach, shocked in the field. AICD today, starte on amiodarone 01/07 (2) Acute respiratory failure with hypoxia Code(s): J96.01 - ACUTE RESPIRATORY FAILURE WITH HYPOXIA Status: Resolved (3) Cardiomyopathy Code(s): I42.9 - CARDIOMYOPATHY, UNSPECIFIED Status: Acute Qualifiers: Cardiomyopathy type: unspecified Qualified Code(s): I42.9 - Cardiomyopathy , unspecified (4) Encephalopathy Code(s): G93.40 - ENCEPHALOPATHY, UNSPECIFIED Status: Acute Comment: likely anoxic injury, slowly improving (5) Heart failure, systolic, with acute decompensation Code(s): I50.23 - ACUTE ON CHRONIC SYSTOLIC (CONGESTIVE) HEART FAILURE Status : Acute (6) Hypokalemia Code(s): E87.6 - HYPOKALEMIA Status: Resolved (7) Thrombocytopenia Code(s): D69.6 - THROMBOCYTOPENIA, UNSPECIFIED Status: Acute - Plan cont current plan of care, plan discussed w/ family, PT/OT, out of bed/ambulate * .
[2018-01-08] MEDS ORDERED: PROPOFOL 200 MG/20 ML VIAL ONE (14:36)
[2018-01-08] MEDS ORDERED: Fentanyl 100 MCG/2 ML VIAL ONE (16:24)
[2018-01-08] MEDS ORDERED: Midazolam HCl 2 mg/2 ml Vial ONE (16:24)
[2018-01-08] MEDS ORDERED: Ketamine 50 MG/ML VIAL ONE (16:24)
[2018-01-08] MEDS ORDERED: Phenylephrine HCL 10 MG/ML VIAL ONE (16:25)
[2018-01-08] MEDS ORDERED: Propofol 500 MG/50 ML VIAL ONE (16:25)
[2018-01-08] MEDS ORDERED: CEFAZOLIN/Water 2 GM/20 ML SYRINGE ONE (16:32)
--- NOTE | 2018-01-08 17:44 | PDOC.CTH ---
Cardiology Progress Note - Subjective Remains confused. - Objective Vital Signs Temp Pulse Pulse Resp BP BP Pulse Ox 01/08/18 16:00 96.4 F L 72 18 123/59 L 93 L 01/08/18 13:05 96.4 F L 62 14 102/58 L 91 L 01/08/18 10:16 64 104/64 01/08/18 07:46 96.9 F L 58 L 14 138/65 92 L 01/08/18 07:00 96.9 F L 58 L 14 93 L Admit Weight 184 lb Weight 169 lb 6.4 oz 01/07/18 01/08/18 01/09/18 06:59 06:59 06:59 Intake Total 920 990 Output Total 750 Balance 170 990 - Physical Examination General/Neuro: NAD Neck: no JVD present Lungs: CTA, unlabored respirations Heart: RRR Abdomen: NT/ND Extremities: other: (no edema.) - Telemetry Telemetry Rhythm: NSR - Labs Result Diagrams: 01/08/18 05:18 01/08/18 05:18 Troponin/CKMB CK-MB (CK-2) 5.1 ng/mL (0-6.6) 01/01/18 14:07 Troponin I 0.528 ng/mL (< 0.028) H* 01/01/18 14:07 - Assessment/Plan 1. VFib arrest. 2. Severe dilated CM, EF on echo at 20-25%, on LHC at 35%. 3. CAD, recent stents to LAD patent. (Jan 2017) 4. Anoxic brain injury. Slowly regaining consciousness. PLAN: - Decision made by family and POA to do AICD. - Once de vice in place he may be placed as appropriate. - Needs a sitter in the room 24 hrs. - Amio load at 3800 mg now. Will need Amio 400mg BID for the next 7 days. Then down to 200 mg daily.
[2018-01-08] MEDS ORDERED: Promethazine HCl 25 MG/ML VIAL IM PRN (18:06)
[2018-01-08] MEDS ORDERED: Ondansetron HCl/PF 4 MG/2 ML Vial IVP PRN (18:06)
[2018-01-08] MEDS ORDERED: Promethazine HCl 25 MG/ML VIAL SLOW IVP PRN (18:06)
--- NOTE | 2018-01-08 18:28 | RAD ---
AP VIEW OF THE CHEST 01/08/18 INDICATION: Status post defibrillator placement. COMPARISON: Prior exam dated 01/06/18. FINDINGS: Multilead AICD now projects over the left chest wall. No pneumothorax is evident. Retrocardiac air sp shona opacity and small left pleural effusion persists. No acute osseous abnormality is evident. IMPRESSION: 1. Interval placement of a multilead defibrillator without evidence of pneumothorax. 2. Persistent retrocardiac air space opacity may reflect atelectasis related to the patient's sm all pleural effusion. Pneumonia is not excluded. Recommend continued followup. POS: [facility]
--- NOTE | 2018-01-08 20:35 | RAD ---
AP VIEW OF THE CHEST: 01/08/18 INDICATION: Pacemaker placement. COMPARISON: Prior exam dated 01/08/18. IMPRESSION: Multilead AICD is unchanged. No pneumothorax is evident. Left sided pleural parenchymal opacity and r etrocardiac air space opacity persists. POS: [facility]
[2018-01-09 06:02] LABS: Anion Gap 11 mmol/L (10-20); BUN (Urea Nitrogen) 17 mg/dL (8.4-25.7); Calc. Creatinine Clearance 53 mL/min (70-130); Calcium 9.1 mg/dL (7.8-10.44); Carbon Dioxide 28 mmol/L (23-31); Chloride 104 mmol/L (98-107); Estimated GFR-MDRD 59; Glucose 87 mg/dL (83-110); Potassium 4.5 mmol/L (3.5-5.1); Sodium 138 mmol/L (136-145)
[2018-01-09] MEDS: Enoxaparin Sodium 40 MG/0.4 ML SYRINGE SC SCH (09:55)
[2018-01-09] MEDS: Potassium Chloride 20 MEQ TAB PO SCH ×2 (09:55→17:51)
[2018-01-09] MEDS: Famotidine 20 MG TAB PO SCH ×2 (09:55→20:24)
[2018-01-09] MEDS: Amiodarone 200 MG TAB PO SCH ×2 (09:55→20:23)
[2018-01-09] MEDS: Furosemide 20 MG TAB PO SCH ×2 (09:55→15:04)
--- NOTE | 2018-01-09 10:32 | PDOC.PN ---
- Subjective Encounter Start Date: 01/09/18 Encounter Start Time: 08:20 Pt had AICD placed without event. PT agitated overnight, no other reported events no f/c, no N/V/d/C, no SOB, some CP when rolling, redness to periAICD site had a 'good' afternoon in regards to mental status all systems reviewed and neg x as above - Objective Resuscitation Status: Resuscitation Status DNR:Do Not Resuscitate MAR Reviewed: Yes Vital Signs & Weight: Vital Signs (12 hours) Temp Pulse Resp BP BP Pulse Ox 01/09/18 07:15 98.4 F 65 18 130/73 92 L 01/09/18 03:54 97.7 F 67 20 131/63 94 L 01/09/18 01:00 65 115/63 95 01/09/18 00:00 66 100/57 L 93 L 01/08/18 23:00 69 110/57 L 91 L Weight Admit Weight 184 lb Weight 163 lb 14.4 oz Most Recent Monitor Data Heart Rate from ECG 69 NIBP 105/61 NIBP BP-Mean 90 Respiration from ECG 23 SpO2 93 I&O: 01/08/18 01/09/18 01/10/18 06:59 06:59 06:59 Intake Total 990 600 Output Total 1000 Balance 990 -400 Result Diagrams: 01/08/18 05:18 01/09/18 05:09 Additional Labs: Accuchecks 01/09/18 01/08/18 00:17 11:56 POC Glucose 111 H 85 Phys Exam - Physical Examination Constitutional: NAD HEENT: PERRLA, moist MMs, sclera anicteric, oral pharynx no lesions Neck: no nodes, no JVD, supple, full ROM Respiratory: no wheezing, no rales, no rhonchi, clear to auscultation bilateral Cardiovascular: RRR, no significant murmur, no rub Gastrointestinal: soft, non-tender, no distention, positive bowel sounds Musculoskeletal: no edema, pulses present Neurological: non-focal, normal sensation, moves all 4 limbs Lymphatic: no nodes Psychiatric: normal affect Deviation from normal: Ox1 Skin: no rash, normal turgor, cap refill <2 seconds Deviation from normal: slight redness, nonblanching to left chest Dx/Plan (1) Cardiac arrest Code(s): I46.9 - CARDIAC ARREST, CAUSE UNSPECIFIED Status: Resolved Comment : Sustained V Tach, shocked in the field. AICD today, starte on amiodarone 01/07 (2) Acute respiratory failure with hypoxia Code(s): J96.01 - ACUTE RESPIRATORY FAILURE WITH HYPOXIA Status: Resolved (3) Cardiomyopathy Code(s): I42.9 - CARDIOMYOPATHY, UNSPECIFIED Status: Acute Qualifiers: Cardiomyopathy type: unspecified Qualified Code(s): I42.9 - Cardiomyopathy , unspecified (4) Encephalopathy Code(s): G93.40 - ENCEPHALOPATHY, UNSPECIFIED Status: Acute Comment: likely anoxic injury, slowly improving (5) Heart failure, systolic, with acute decompensation Code(s): I50.23 - ACUTE ON CHRONIC SYSTOLIC (CONGESTIVE) HEART FAILURE Status : Acute (6) Hypokalemia Code(s): E87.6 - HYPOKALEMIA Status: Resolved (7) Thrombocytopenia Code(s): D69.6 - THROMBOCYTOPENIA, UNSPECIFIED Status: Acute - Plan cont current plan of care, plan discussed w/ family, PT/OT, psychiatric social worker supervisor, out of bed/ambulate * . AICD placed, increase seroquel. to IPR if and when approved
--- NOTE | 2018-01-09 13:07 | PDOC.CTH ---
Cardiology Progress Note - Subjective EP Progress Note: Patient resting in bed eating lunch. Unable to provide ROS. Reportedly poor sleep and some agitation last night. - ROS not able to obtain ROS - Objective Vital Signs Temp Pulse Resp BP Pulse Ox 01/09/18 11:15 97.7 F 92 18 116/56 L 96 01/09/18 07:15 98.4 F 65 18 130/73 92 L 01/09/18 03:54 97.7 F 67 20 131/63 94 L Admit Weight 184 lb Weight 163 lb 14.4 oz 01/08/18 01/09/18 01/10/18 06:59 06:59 06:59 Intake Total 990 600 Output Total 1000 Balance 990 -400 - Physical Examination General/Neuro: NAD, other: (Alert. Oriented to name) Neck: no JVD present Lungs: CTA, unlabored respirations Heart: RRR Abdomen: NT/ND, soft Other PE findings: ICD incision without bruising, swelling or drainage. Stable - Telemetry Telemetry Rhythm: , LEGAL OPERATIONS MANAGER - Labs Result Diagrams: 01/08/18 05:18 01/09/18 05:09 Troponin/CKMB CK-MB (CK-2) 5.1 ng/mL (0-6.6) 01/01/18 14:07 Troponin I 0.528 ng/mL (< 0.028) H* 01/01/18 14:07 - Assessment/Plan 1. Recent VF arrest: now on Amiodarone 2. ischemic cardiomyopathy, severely reduced EF 3. Mild troponin elevation, likely related to CPR 4. Anoxic encephalopathy, recalling some accurate details from remote past but completely disoriented possibly with some expressive aphasia. 5. Left bundle branch block 6. Bi-V ICD placed 01-08-18, adequate V pacing. Site without complications. CXR today stable. OK to DC by EP with following instructions: script in is chart. Post implant keflex 500mg PO Q6hr x 7 days Amiodarone taper- 200mg PO TID x 7 days, then 200mg BID x 7 days, then 200mg daily thereafter Wound check in 1-2 weeks at [facility] clinic in [place] is requested.
[2018-01-09 13:49] LABS: Hemoglobin 15.9 g/dL (14.0-18.0); Mean Corpuscular Hemoglobin 32.2 pg (27.0-31.0); Mean Corpuscular Volume 94.8 fL (78.0-98.0); Mean Platelet Volume 8.4 fL (7.4-10.4); Platelet Count 225 thou/uL (130-400); RBC Distribution Width 12.7 % (11.5-14.5); Red Blood Cell (RBC) Count 4.93 mill/uL (4.70-6.10)
--- NOTE | 2018-01-09 14:02 | PRG ---
DATE OF SERVICE: 01/09/2018 SERVICE: Pulmonary Medicine. INTERVAL HISTORY: The patient is doing fine from a respiratory standpoint. He is coughing a little bit and bringing up a small amount of sputum. His chest hurts from the chest compressions. Otherwis e, there has been no interval change to his condition. PHYSICAL EXAMINATION: VITAL SIGNS: Afebrile, pulse 92, blood pressure 116/56, respirations 18, saturation 96% on room air. GENERAL: The patient is awake, alert, no apparent distress. LUNGS: Rhonchi are present. There is no prolonged expiratory phase or wheezing, however. HEART: Normal rate, regular. ABDOMEN: Soft, nontender, nondistended. Bowel sounds are positive. MUSCULOSKELETAL: No cyanosis or clubbing. There is trace 1+ pitting in the bilateral lower extremit ies. NEUROLOGIC: Grossly nonfocal. LABORATORY DATA: Basic metabolic profile is unremarkable with creatinine 1.18. One out of two blood cultures was growing Corynebacterium drawn from the central line; however, this has subsequently bee n removed. IMAGING DATA: Chest x-ray demonstrates AICD is noted. No pneumothorax is evident. There is a left- sided pleural parenchymal opacity and retrocardiac airspace opacity which have been stable and persis ting for some time. ASSESSMENT: 1. History of ventricular tachycardia arrest, out of hospital, status post AICD placement. 2. Acute hypoxic respiratory failure, resolved. 3. Anoxic brain injury, slowly improving. DISCUSSION AND PLAN: From a purely respiratory standpoint, the patient is stable for transition out of the hospital. He will need a repeat chest x-ray in 4-6 weeks in the outpatient setting to make ce rtain if left-sided infiltrate resolves. Ultimately, he will need to go to a facility where they can pursue aggressive rehabilitation with this gentleman. Pulmonary will continue to follow through thi s hospital stay.
[2018-01-09 14:13] LABS: Band 1 % (5-11); Eosinophils 2 % (0-10); Lymphocytes 6 % (21-51); MDiff Complete? YES; Monocytes 8 % (0-10); Neutrophil 82 % (42-75); PLT Morphology Comment Appears Adequate; RBC Morphology Normal
--- NOTE | 2018-01-09 14:36 | PDOC.CTH ---
Cardiology Progress Note - Subjective No new issues, He had his Bi V AICD placed yesterday and did well. - Objective Vital Signs Temp Pulse Resp BP Pulse Ox 01/09/18 11:15 97.7 F 92 18 116/56 L 96 01/09/18 07:15 98.4 F 65 18 130/73 92 L 01/09/18 03:54 97.7 F 67 20 131/63 94 L Admit Weight 184 lb Weight 163 lb 14.4 oz 01/08/18 01/09/18 01/10/18 06:59 06:59 06:59 Intake Total 990 600 Output Total 1000 Balance 990 -400 - Physical Examination General/Neuro: NAD Neck: no JVD present Lungs: CTA, unlabored respirations Heart: RRR Abdomen: NT/ND Extremities: other: (no edema.,) - Telemetry Telemetry Rhythm: NSR - Labs Result Diagrams: 01/09/18 13:37 01/09/18 05:09 Troponin/CKMB CK-MB (CK-2) 5.1 ng/mL (0-6.6) 01/01/18 14:07 Troponin I 0.528 ng/mL (< 0.028) H* 01/01/18 14:07 - Assessment/Plan 1. VFib arrest. 2. Severe dilated CM, EF on echo at 20-25%, on LHC at 35%. 3. CAD, recent stents to LAD patent. (Jan 2017) 4. Anoxic brain injury. Slowly regaining consciousness. 5. S/P BiV AID placement. \ PLAN: - Needs a sitter in the room 24 hrs still due to confusion. - Amio load at 4600 mg now. Will need Amio 400mg BID for the next 6 days. Then down to 200 mg daily. - Will strat low dose BB today. If BP allows will start ACEI tomorrow. - Placement.
[2018-01-09] MEDS: Carvedilol 3.125 MG TAB PO SCH (17:50)
[2018-01-10 05:55] LABS: Anion Gap 9 mmol/L (10-20); BUN (Urea Nitrogen) 16 mg/dL (8.4-25.7); Calc. Creatinine Clearance 49 mL/min (70-130); Calcium 8.9 mg/dL (7.8-10.44); Carbon Dioxide 30 mmol/L (23-31); Chloride 103 mmol/L (98-107); Estimated GFR-MDRD 56; Glucose 98 mg/dL (83-110); Potassium 4.4 mmol/L (3.5-5.1); Sodium 138 mmol/L (136-145)
[2018-01-10 06:25] LABS: Hemoglobin 15.5 g/dL (14.0-18.0); Mean Corpuscular Hemoglobin 31.3 pg (27.0-31.0); Mean Corpuscular Volume 94.7 fL (78.0-98.0); Mean Platelet Volume 8.5 fL (7.4-10.4); Platelet Count 199 thou/uL (130-400); RBC Distribution Width 12.9 % (11.5-14.5); Red Blood Cell (RBC) Count 4.94 mill/uL (4.70-6.10); White Blood Cell (WBC) Count 9.3 thou/uL (4.8-10.8)
[2018-01-10 06:26] LABS: Band 3 % (5-11); Eosinophils 2 % (0-10); Lymphocytes 18 % (21-51); MDiff Complete? YES; Monocytes 10 % (0-10); Neutrophil 67 % (42-75); PLT Morphology Comment Appears Adequate
[2018-01-10] MEDS: Carvedilol 3.125 MG TAB PO SCH (10:13)
[2018-01-10] MEDS: Furosemide 20 MG TAB PO SCH ×2 (10:13→14:11)
[2018-01-10] MEDS: Potassium Chloride 20 MEQ TAB PO SCH ×2 (10:13→17:44)
[2018-01-10] MEDS: Famotidine 20 MG TAB PO SCH ×2 (10:14→20:10)
[2018-01-10] MEDS: Amiodarone 200 MG TAB PO SCH ×2 (10:14→20:10)
[2018-01-10] MEDS: Enoxaparin Sodium 40 MG/0.4 ML SYRINGE SC SCH (10:24)
--- NOTE | 2018-01-10 12:24 | PDOC.PN ---
- Subjective Encounter Start Date: 01/10/18 Encounter Start Time: 08:40 sleeping today, slept well overnight, groggy yesterday afternoon. No F/c, no N/V/D/C, no CP or sOB, no arrhythmias S.O. at bedside, questions answered - Objective Resuscitation Status: Resuscitation Status DNR:Do Not Resuscitate MAR Reviewed: Yes Vital Signs & Weight: Vital Signs (12 hours) Temp Pulse Resp BP Pulse Ox 01/10/18 07:45 98.2 F 60 18 127/65 92 L 01/10/18 07:10 98.2 F 60 18 92 L 01/10/18 04:00 98.0 F 60 20 133/72 94 L Weight Admit Weight 184 lb Weight 164 lb 14.4 oz Most Recent Monitor Data Heart Rate from ECG 69 NIBP 105/61 NIBP BP-Mean 90 Respiration from ECG 23 SpO2 93 I&O: 01/09/18 01/10/18 01/11/18 06:59 06:59 06:59 Intake Total 600 700 Output Total 1000 650 Balance -400 50 Result Diagrams: 01/10/18 05:00 01/10/18 05:01 Additional Labs: Accuchecks 01/10/18 01/10/18 01/09/18 05:31 00:13 18:48 POC Glucose 84 102 166 H 01/09/18 01/09/18 01/08/18 15:18 06:03 05:39 POC Glucose 103 79 89 Phys Exam - Physical Examination Constitutional: NAD HEENT: PERRLA, moist MMs, sclera anicteric, oral pharynx no lesions Neck: no nodes, no JVD, supple, full ROM Respiratory: no wheezing, no rales, no rhonchi, clear to auscultation bilateral Cardiovascular: RRR, no significant murmur, no rub Gastrointestinal: soft, non-tender, no distention, positive bowel sounds Musculoskeletal: no edema, pulses present Neurological: non-focal, normal sensation, moves all 4 limbs Lymphatic: no nodes Skin: no rash, normal turgor, cap refill <2 seconds Dx/Plan (1) Cardiac arrest Code(s): I46.9 - CARDIAC ARREST, CAUSE UNSPECIFIED Status: Resolved Comment : Sustained V Tach, shocked in the field. AICD in place, on Amio (2) Acute respiratory failure with hypoxia Code(s): J96.01 - ACUTE RESPIRATORY FAILURE WITH HYPOXIA Status: Resolved (3) Cardiomyopathy Code(s): I42.9 - CARDIOMYOPATHY, UNSPECIFIED Status: Acute Qualifiers: Cardiomyopathy type: unspecified Qualified Code(s): I42.9 - Cardiomyopathy , unspecified (4) Encephalopathy Code(s): G93.40 - ENCEPHALOPATHY, UNSPECIFIED Status: Acute Comment: likely anoxic injury, slowly improving, HS Seroquel (5) Heart failure, systolic, with acute decompensation Code(s): I50.23 - ACUTE ON CHRONIC SYSTOLIC (CONGESTIVE) HEART FAILURE Status : Resolved (6) Hypokalemia Code(s): E87.6 - HYPOKALEMIA Status: Resolved (7) Thrombocytopenia Code(s): D69.6 - THROMBOCYTOPENIA, UNSPECIFIED Status: Acute - Plan cont current plan of care, plan discussed w/ family, PT/OT, social worker clinical, out of bed/ambulate * .
--- NOTE | 2018-01-10 14:03 | PRG ---
DATE OF SERVICE: 01/10/2018 SUBJECTIVE: The patient is confused, has no complaints. OBJECTIVE: VITAL SIGNS: Temperature 98.2, pulse 61, respirations 18, O2 sat 92%, blood pressure 127/65. HEENT: Unremarkable. NECK: No JVD. CHEST: Clear. CARDIAC: S1 and S2 regular. ABDOMEN: Soft. EXTREMITIES: No edema. LABORATORY DATA: White blood cell count 9.3, hematocrit 46.8, platelet count 199. Sodium 130, potas sium 4.4, BUN 16, creatinine 1.2, glucose 98. ASSESSMENT: 1. Status post cardiac arrest. 2. Encephalopathy. PLAN: Continue supportive care and hopefully his anoxic injury will continue to improve with time. Discussed with family at bedside.
--- NOTE | 2018-01-10 16:35 | PDOC.CTH ---
Cardiology Progress Note - Subjective No new issues. POA at bedside states she feels his mentation is getting better every day. - Objective Vital Signs Temp Pulse Pulse Pulse Pulse Resp BP 01/10/18 14:27 61 60 60 84/59 L 01/10/18 12:31 98.8 F 61 16 01/10/18 07:45 98.2 F 60 18 01/10/18 07:10 98.2 F 60 18 BP BP BP Pulse Ox 01/10/18 14:27 98/58 L 111/55 L 01/10/18 12:31 122/71 93 L 01/10/18 07:45 127/65 92 L 01/10/18 07:10 92 L Admit Weight 184 lb Weight 164 lb 14.4 oz 01/09/18 01/10/18 01/11/18 06:59 06:59 06:59 Intake Total 600 700 Output Total 1000 650 Balance -400 50 - Physical Examination General/Neuro: NAD Neck: no JVD present Lungs: CTA, unlabored respirations Heart: RRR Abdomen: NT/ND Extremities: other: (no edema.) - Telemetry Telemetry Rhythm: AV paced. - Labs Result Diagrams: 01/10/18 05:00 01/10/18 05:01 Troponin/CKMB CK-MB (CK-2) 5.1 ng/mL (0-6.6) 01/01/18 14:07 Troponin I 0.528 ng/mL (< 0.028) H* 01/01/18 14:07 - Assessment/Plan 1. VFib arrest. 2. Severe dilated CM, EF on echo at 20-25%, on LHC at 35%. 3. CAD, recent stents to LAD patent. (Jan 2017) 4. Anoxic brain injury. Slowly regaining consciousness. 5. S/P BiV AID placement. \ PLAN: - Needs a sitter in the room 24 hrs still due to confusion. - Amio load at 5400 mg now. Will need Amio 400mg BID for the next 5 days. Then down to 200 mg daily. - BP borderline low. No ACEI for now and will stop BB. - Placement.
[2018-01-11 06:45] LABS: Anion Gap 10 mmol/L (10-20); BUN (Urea Nitrogen) 18 mg/dL (8.4-25.7); Calc. Creatinine Clearance 52 mL/min (70-130); Calcium 8.9 mg/dL (7.8-10.44); Carbon Dioxide 27 mmol/L (23-31); Chloride 104 mmol/L (98-107); Estimated GFR-MDRD 60; Glucose 100 mg/dL (83-110); Potassium 4.1 mmol/L (3.5-5.1); Sodium 137 mmol/L (136-145)
[2018-01-11 06:57] LABS: Hemoglobin 15.8 g/dL (14.0-18.0); Mean Corpuscular HGB CONC 33.7 g/dL (32.0-36.0); Mean Corpuscular Hemoglobin 31.9 pg (27.0-31.0); Mean Corpuscular Volume 94.6 fL (78.0-98.0); Mean Platelet Volume 8.4 fL (7.4-10.4); Platelet Count 178 thou/uL (130-400); RBC Distribution Width 12.6 % (11.5-14.5); Red Blood Cell (RBC) Count 4.97 mill/uL (4.70-6.10); White Blood Cell (WBC) Count 10.4 thou/uL (4.8-10.8)
[2018-01-11 08:06] LABS: Eosinophils 2 % (0-10); Large Platelets SLIGHT; Lymphocytes 17 % (21-51); MDiff Complete? YES; Monocytes 14 % (0-10); Neutrophil 67 % (42-75); PLT Morphology Comment Appears Adequate; RBC Morphology Normal
[2018-01-11] MEDS: Famotidine 20 MG TAB PO SCH ×2 (09:32→23:54)
[2018-01-11] MEDS: Furosemide 20 MG TAB PO SCH ×2 (09:32→14:17)
[2018-01-11] MEDS: Amiodarone 200 MG TAB PO SCH ×2 (09:32→20:56)
[2018-01-11] MEDS: Potassium Chloride 20 MEQ TAB PO SCH ×2 (09:32→16:48)
[2018-01-11] MEDS: Enoxaparin Sodium 40 MG/0.4 ML SYRINGE SC SCH ×2 (09:32→10:38)
--- NOTE | 2018-01-11 13:24 | PRG ---
DATE OF SERVICE: 01/11/2018 SUBJECTIVE: The patient is about the same, remains confused. OBJECTIVE: VITAL SIGNS: Temperature 97.1, pulse 78, respirations 16, O2 sat 95%. Physical exam otherwise unchanged. ASSESSMENT: Status post arrest with persistent encephalopathy. PLAN: Continue supportive care.
--- NOTE | 2018-01-11 14:03 | PDOC.PN ---
- Subjective Encounter Start Date: 01/11/18 Encounter Start Time: 09:45 agitates overnight on the lower dose of seroquel. No F/C, no N/V/D/C, no CP or SOB all systems reviewed and denied. unsure of reliability - Objective Resuscitation Status: Resuscitation Status DNR:Do Not Resuscitate MAR Reviewed: Yes Vital Signs & Weight: Vital Signs (12 hours) Temp Pulse Resp BP Pulse Ox 01/11/18 12:00 97.1 F L 78 16 107/64 95 01/11/18 08:00 97.1 F L 60 16 92 L 01/11/18 07:15 97.1 F L 60 16 116/70 92 L Weight Admit Weight 184 lb Weight 164 lb 14.4 oz Most Recent Monitor Data Heart Rate from ECG 69 NIBP 105/61 NIBP BP-Mean 90 Respiration from ECG 23 SpO2 93 I&O: 01/10/18 01/11/18 01/12/18 06:59 06:59 06:59 Intake Total 700 960 Output Total 650 850 Balance 50 110 Result Diagrams: 01/11/18 06:18 01/11/18 06:18 Additional Labs: Accuchecks 01/11/18 01/11/18 01/10/18 12:10 06:00 23:54 POC Glucose 122 H 91 88 01/10/18 18:08 POC Glucose 100 EKG Reviewed by me: Yes Phys Exam - Physical Examination Constitutional: NAD HEENT: PERRLA, moist MMs, sclera anicteric, oral pharynx no lesions Neck: no nodes, no JVD, supple, full ROM Respiratory: no wheezing, no rales, no rhonchi, clear to auscultation bilateral Cardiovascular: RRR, no significant murmur, no rub Gastrointestinal: soft, non-tender, no distention, positive bowel sounds Musculoskeletal: no edema, pulses present Neurological: non-focal, normal sensation, moves all 4 limbs Lymphatic: no nodes Psychiatric: normal affect Deviation from normal: Ox1 Skin: no rash, normal turgor, cap refill <2 seconds Dx/Plan (1) Cardiac arrest Code(s): I46.9 - CARDIAC ARREST, CAUSE UNSPECIFIED Status: Resolved Comment : Sustained V Tach, shocked in the field. AICD in place, on Amio (2) Acute respiratory failure with hypoxia Code(s): J96.01 - ACUTE RESPIRATORY FAILURE WITH HYPOXIA Status: Resolved (3) Cardiomyopathy Code(s): I42.9 - CARDIOMYOPATHY, UNSPECIFIED Status: Acute Qualifiers: Cardiomyopathy type: unspecified Qualified Code(s): I42.9 - Cardiomyopathy , unspecified (4) Encephalopathy Code(s): G93.40 - ENCEPHALOPATHY, UNSPECIFIED Status: Acute Comment: likely anoxic injury, slowly improving, HS Seroquel (5) Heart failure, systolic, with acute decompensation Code(s): I50.23 - ACUTE ON CHRONIC SYSTOLIC (CONGESTIVE) HEART FAILURE Status : Resolved (6) Hypokalemia Code(s): E87.6 - HYPOKALEMIA Status: Resolved (7) Thrombocytopenia Code(s): D69.6 - THROMBOCYTOPENIA, UNSPECIFIED Status: Acute - Plan cont current plan of care, plan discussed w/ family, PT/OT * . increase seroquel, plan for discharge in 1-2 days
--- NOTE | 2018-01-11 19:51 | PDOC.CTH ---
Cardiology Progress Note - Subjective No new issues. Mentation slowly improving. - Objective Vital Signs Temp Pulse Resp BP BP Pulse Ox 01/11/18 16:45 98.1 F 61 16 124/69 96 01/11/18 12:00 97.1 F L 78 16 107/64 95 01/11/18 08:00 97.1 F L 60 16 92 L Admit Weight 184 lb Weight 164 lb 14.4 oz 01/10/18 01/11/18 01/12/18 06:59 06:59 06:59 Intake Total 700 960 960 Output Total 650 850 575 Balance 50 110 385 - Physical Examination General/Neuro: NAD Neck: no JVD present Lungs: CTA, unlabored respirations Heart: RRR Abdomen: NT/ND Extremities: other: (no edema.) - Telemetry Telemetry Rhythm: AV paced. - Labs Result Diagrams: 01/11/18 06:18 01/11/18 06:18 Troponin/CKMB CK-MB (CK-2) 5.1 ng/mL (0-6.6) 01/01/18 14:07 Troponin I 0.528 ng/mL (< 0.028) H* 01/01/18 14:07 - Assessment/Plan 1. VFib arrest. 2. Severe dilated CM, EF on echo at 20-25%, on LHC at 35%. 3. CAD, recent stents to LAD patent. (Jan 2017) 4. Anoxic brain injury. Slowly regaining consciousness. 5. S/P BiV AID placement. \ PLAN: - Needs a sitter in the room 24 hrs still due to confusion. - Amio load at 6200 mg now. Will need Amio 400mg BID for the next 4 days. Then down to 200 mg daily. - BP still borderline low. No ACEI or BB. he dropped after starting BB. - Placement when room available.
[2018-01-11] MEDS: Cephalexin 250 MG CAP PO SCH (20:56)
[2018-01-11] MEDS ORDERED: Atorvastatin Calcium 20 MG TAB PO SCH (21:00)
[2018-01-12 05:12] LABS: Band 6 % (5-11); Hemoglobin 15.9 g/dL (14.0-18.0); Lymphocytes 16 % (21-51); MDiff Complete? YES; Mean Corpuscular HGB CONC 34.6 g/dL (32.0-36.0); Mean Corpuscular Hemoglobin 32.5 pg (27.0-31.0); Mean Platelet Volume 8.8 fL (7.4-10.4); Metamyelocyte 1 % (0-0); Monocytes 5 % (0-10); Neutrophil 71 % (42-75); PLT Morphology Comment Appears Adequate; Platelet Count 159 thou/uL (130-400); RBC Distribution Width 12.5 % (11.5-14.5); Red Blood Cell (RBC) Count 4.89 mill/uL (4.70-6.10); White Blood Cell (WBC) Count 11.7 thou/uL (4.8-10.8)
[2018-01-12 05:16] LABS: Anion Gap 13 mmol/L (10-20); BUN (Urea Nitrogen) 19 mg/dL (8.4-25.7); Calc. Creatinine Clearance 46 mL/min (70-130); Calcium 9.2 mg/dL (7.8-10.44); Carbon Dioxide 27 mmol/L (23-31); Chloride 104 mmol/L (98-107); Estimated GFR-MDRD 51; Glucose 98 mg/dL (83-110); Potassium 4.6 mmol/L (3.5-5.1); Sodium 139 mmol/L (136-145)
[2018-01-12] MEDS ORDERED: Clopidogrel Bisulfate 75 MG TAB PO SCH (09:00)
--- NOTE | 2018-01-12 09:40 | PRG ---
DATE OF SERVICE: 01/12/2018 This morning he is awake, alert, responsive, still encephalopathic, but better. He is eating break[address]. PHYSICAL EXAMINATION: VITAL SIGNS: Sats are 100% on room air, temperature 98, blood pressure 130/80. CHEST: Chest revealed decreased breath sounds, no wheezing. CARDIAC: Normal S1, S2. ABDOMEN: Soft, no masses. LABORATORY: Creatinine 1.34. White count 11,000. IMPRESSION: 1. Status post cardiopulmonary arrest. 2. Ventricular fibrillation, ventricular tachycardia. 3. Status post AICD. 4. Congestive heart failure. PLAN: Pulmonary-gay, continue aggressive PT, eventually placement.
[2018-01-12] MEDS: Potassium Chloride 20 MEQ TAB PO SCH (09:51)
[2018-01-12] MEDS: Famotidine 20 MG TAB PO SCH (09:51)
[2018-01-12] MEDS: Amiodarone 200 MG TAB PO SCH (09:51)
[2018-01-12] MEDS: Cephalexin 250 MG CAP PO SCH ×2 (09:51→15:58)
[2018-01-12] MEDS: Furosemide 20 MG TAB PO SCH ×2 (09:51→15:59)
[2018-01-12 10:30] VITALS: BP 123/73; TEMP 97.6
[2018-01-12 12:44] VITALS: BMI 24.3
--- NOTE | 2018-01-12 16:40 | PDOC.CTH ---
Cardiology Progress Note - Subjective No new issues. Much more calm today. - Objective Vital Signs Temp Pulse Resp BP Pulse Ox 01/12/18 09:50 97.6 F 60 20 123/73 96 01/12/18 08:00 97.6 F 60 20 96 Admit Weight 184 lb 4.903 oz Weight 165 lb 01/11/18 01/12/18 01/13/18 06:59 06:59 06:59 Intake Total 960 1460 Output Total 850 625 Balance 110 835 - Physical Examination General/Neuro: NAD Neck: no JVD present Lungs: CTA, unlabored respirations Heart: RRR Abdomen: NT/ND Extremities: other: (No edema.) - Telemetry Telemetry Rhythm: NSR - Labs Result Diagrams: 01/12/18 04:26 01/12/18 04:26 Troponin/CKMB CK-MB (CK-2) 5.1 ng/mL (0-6.6) 01/01/18 14:07 Troponin I 0.528 ng/mL (< 0.028) H* 01/01/18 14:07 - Assessment/Plan 1. VFib arrest. 2. Severe dilated CM, EF on echo at 20-25%, on LHC at 35%. 3. CAD, recent stents to LAD patent. (Jan 2017) 4. Anoxic brain injury. Slowly regaining consciousness. 5. S/P BiV AID placement. \ PLAN: - Needs a sitter in the room 24 hrs still due to confusion. - Amio load at 7000 mg now. Will need Amio 400mg BID for the next 3 days. Then down to 200 mg daily. - BP better. Will ad low dose BB. - Placement.
[2018-01-13] MEDS ORDERED: Famotidine 20 MG TAB PO SCH (09:00)
[2018-01-13] MEDS ORDERED: Furosemide 20 MG TAB PO SCH (09:00)
== END 2018-01-12 18:00 | DRG 224 ==
LOC: ERS 04:26 → CCU 09:02 → 2NO 01-06 15:23
PROVIDERS: ADMIT Hospitalist; ATTEND Hospitalist
PROC: 5A1945Z Respiratory Ventilation, 24-96 Consecutive Hours (ICD-10-PCS; principal; 2018-01-01)
PROC: 4A023N7 Measurement of Cardiac Sampling and Pressure, Left Heart, Percutaneous Approach (ICD-10-PCS; 2018-01-01)
PROC: 0BH17EZ Insertion of Endotracheal Airway into Trachea, Via Natural or Artificial Opening (ICD-10-PCS; 2018-01-01)
PROC: B2111ZZ Fluoroscopy of Multiple Coronary Arteries using Low Osmolar Contrast (ICD-10-PCS; 2018-01-01)
PROC: 02HV33Z Insertion of Infusion Device into Superior Vena Cava, Percutaneous Approach (ICD-10-PCS; 2018-01-01)
PROC: 0JH609Z Insertion of Cardiac Resynchronization Defibrillator Pulse Generator into Chest Subcutaneous Tissue and Fascia, Open Approach (ICD-10-PCS; 2018-01-08)
PROC: 02HK3KZ Insertion of Defibrillator Lead into Right Ventricle, Percutaneous Approach (ICD-10-PCS; 2018-01-08)
PROC: 02HL3KZ Insertion of Defibrillator Lead into Left Ventricle, Percutaneous Approach (ICD-10-PCS; 2018-01-08)
PROC: 02H63KZ Insertion of Defibrillator Lead into Right Atrium, Percutaneous Approach (ICD-10-PCS; 2018-01-08)
DX: I49.01 Ventricular fibrillation (principal); I21.4 Non-ST elevation (NSTEMI) myocardial infarction; J96.01 Acute respiratory failure with hypoxia; I50.23 Acute on chronic systolic (congestive) heart failure; G93.1 Anoxic brain damage, not elsewhere classified; R47.01 Aphasia; I46.9 Cardiac arrest, cause unspecified; I42.0 Dilated cardiomyopathy; I11.0 Hypertensive heart disease with heart failure; I25.10 Atherosclerotic heart disease of native coronary artery without angina pectoris; I44.7 Left bundle-branch block, unspecified; I25.5 Ischemic cardiomyopathy; I48.91 Unspecified atrial fibrillation; E87.6 Hypokalemia; D69.6 Thrombocytopenia, unspecified; M19.90 Unspecified osteoarthritis, unspecified site; I25.2 Old myocardial infarction; S01.81XA Laceration without foreign body of other part of head, initial encounter; Z95.5 Presence of coronary angioplasty implant and graft; Z86.73 Personal history of transient ischemic attack (TIA), and cerebral infarction without residual deficits; Z79.02 Long term (current) use of antithrombotics/antiplatelets; Z79.82 Long term (current) use of aspirin; W19.XXXA Unspecified fall, initial encounter; Y92.230 Patient room in hospital as the place of occurrence of the external cause
CPT/HCPCS: 31500; 33225; 33249; 36005; 36415; 36416; 36556; 51702; 70450; 71045; 71275; 72125; 75820; 80048; 80053; 81003; 81015; 82553; 82805; 83605; 83735; 84484; 85007; 85025; 85027; 85379; 85610; 85730; 86850; 86900; 86901; 87086; 93005; 93010; 93306; 93458; 93641; 94002; 94003; 96360; 96361; 96365; 96368; 96375; 96376; A4216; A4218; C1769; C1777; C1882; C1898; C1900; G8978-GP-CM; G8979-GP-CK; G8987-GO-CL; G8988-GO-CJ; J0282; J0461; J0692; J1630; J1644; J1650; J1940; J2250; J2310; J2370; J2704; J3010; J3480; J3490; J7050; J7070; S0028

== ENCOUNTER 2018-01-24 15:53 | Emergency (ER) | payer MEDICARE ==
[2018-01-24 16:39] LABS: #Eosinphils 0.1 thou/uL (0.0-0.7); #Lymphocytes 1.2 thou/uL (1.20-3.40); #Monocytes 0.8 thou/uL (0.11-0.59); #Neutrophils 7.2 thou/uL (1.40-6.50); %Basophils 0.1 % (0.0-1.0); %Eosinophils 1.5 % (0.0-10.0); %Lymphocytes 12.6 % (21.0-51.0); %Monocytes 8.9 % (0.0-10.0); %Neutrophils 76.9 % (42.0-75.0); Hemoglobin 13.1 g/dL (14.0-18.0); Mean Corpuscular HGB CONC 33.6 g/dL (32.0-36.0); Mean Corpuscular Hemoglobin 31.7 pg (27.0-31.0); Mean Corpuscular Volume 94.6 fL (78.0-98.0); Mean Platelet Volume 9.5 fL (7.4-10.4); Platelet Count 159 thou/uL (130-400); RBC Distribution Width 12.8 % (11.5-14.5); Red Blood Cell (RBC) Count 4.14 mill/uL (4.70-6.10); White Blood Cell (WBC) Count 9.4 thou/uL (4.8-10.8)
--- NOTE | 2018-01-24 16:48 | CT ---
NONCONTRAST CT HEAD: 01/24/18 HISTORY: Altered mental status. COMPARISON: 01/01/18. FINDINGS: Again noted are chronic small vessel ischemic changes and cerebral volume loss which have not progres sed from the prior study. Ventricular system is normal in size, shape, and position for the degree of sulcal atrophy. There is no evidence of an acute cortical infarction, hemorrhage, mass effect, or mi dline shift. There has been no significant interval change from the prior exam. IMPRESSION: 1. No acute intracranial abnormalities demonstrated. 2. Stable chronic small vessel ischemic changes and cerebral volume loss. POS: [facility]
[2018-01-24 16:52] LABS: Bilirubin Negative (Negative); Blood, Urine Moderate (Negative); Clarity CLEAR (Clear); Glucose, Urine (Dipstick) Negative (Negative); Leukocyte Small (Negative); Nitrite Negative (Negative); Protein, Urine (Dipstick) Trace mg/dL (Neg-Trace); Specific Gravity, Urine 1.025 (1.002-1.036); Urobilinogen 0.2 mg/dL (0.2-1.0)
[2018-01-24 16:54] LABS: Bacteria/HPF None Seen HPF (None Seen); Pathc Cast-AUWi Flag 1.01 (0-2.49); WBC/HPF 21-50 HPF (0-3); Yeast-AUWi Flag 13.2 (0-25.0)
[2018-01-24 17:02] LABS: ALT (SGPT) 25 U/L (8-55); AST (SGOT) 23 U/L (5-34); Albumin 3.6 g/dL (3.4-4.8); Alkaline Phosphatase 122 U/L (40-150); Anion Gap 13 mmol/L (10-20); BUN (Urea Nitrogen) 14 mg/dL (8.4-25.7); Bilirubin, Total 0.7 mg/dL (0.2-1.2); CK (CPK) 47 U/L (30-200); Calc. Creatinine Clearance 0 mL/min (70-130); Calcium 8.7 mg/dL (7.8-10.44); Carbon Dioxide 22 mmol/L (23-31); Chloride 108 mmol/L (98-107); Estimated GFR-MDRD 65; Globulin 2.4 g/dL (2.4-3.5); Glucose 96 mg/dL (83-110); Potassium 3.9 mmol/L (3.5-5.1); Sodium 139 mmol/L (136-145)
[2018-01-24 17:03] LABS: Hyaline Casts/LPF 4-6 HYALINE CAST LPF (0-3 Hyaline)
[2018-01-24 17:04] LABS: Transitional Epithelial 0-3 HPF (0-3)
[2018-01-24 17:05] LABS: CKMB 1.3 ng/mL (0-6.6); Troponin I Less than 0.010 ng/mL (< 0.028)
[2018-01-24] MEDS ORDERED: Nitrofurantoin Macrocrystal 50 MG CAP PO SCH (18:00)
--- NOTE | 2018-01-28 13:46 | EKG ---
Test Reason : Blood Pressure : / mmHG Vent. Rate : 060 BPM Atrial Rate : 060 BPM P-R Int : 170 ms QRS Dur : 162 ms QT Int : 544 ms P-R-T Axes : 102 239 068 degrees QTc Int : 544 ms AV dual-paced rhythm Biventricular pacemaker detected Abnormal ECG Confirmed by DEVON BANDA, ERI ([id number]), editorial project manager MYRIAM ROBERTO ([id number] on 01/28/2018 1:45:30 PM Referred By: Confirmed By:ERI OSORIO MD
== END 2018-01-24 19:54 | disposition home or self-care (01) ==
LOC: ERS 15:53
DX: N39.0 Urinary tract infection, site not specified (principal); R45.1 Restlessness and agitation; I25.2 Old myocardial infarction; I48.91 Unspecified atrial fibrillation; Z86.73 Personal history of transient ischemic attack (TIA), and cerebral infarction without residual deficits; Z79.82 Long term (current) use of aspirin; Z79.899 Other long term (current) drug therapy
CPT/HCPCS: 70450; 80053; 81003; 81015; 82550; 82553; 84484; 85025; 87086; 93005; 96360

== ENCOUNTER 2018-05-27 13:34 | Outpatient (CLI) | payer MEDICARE ==
--- NOTE | 2018-05-27 15:42 | ULT ---
LEFT LOWER EXTREMITY VENOUS ULTRASOUND WITH DOPPLER: History: Pain and swelling. Comparison: None. Technique: Grayscale, color flow, and doppler imaging with spectral waveform analysis was performed o f the left lower extremity venous system. FINDINGS: There is compressibility, the presence of flow, and augmentation in the common femoral vein, femoral vein, and popliteal vein. There is flow and augmentation in the greater saphenous vein, profunda vein , and posterior tibial vein. IMPRESSION: No acute thrombus in the left lower extremity venous system. POS: [facility]
== END 2018-05-27 13:35 | disposition home or self-care (01) ==
LOC: ULT 13:34
PROVIDERS: ATTEND Family Medicine
DX: M79.605 Pain in left leg (principal)

== ENCOUNTER 2018-09-16 21:59 | Inpatient (IN) | payer MEDICARE ==
[2018-09-16] MEDS ORDERED: Acetaminophen 325 MG TAB ONE (22:50)
[2018-09-16] MEDS ORDERED: Adacel (T-DAP) 0.5 ML SYRINGE ONE (22:50)
--- NOTE | 2018-09-16 23:05 | CT ---
EXAM: Brain CT scan Without contrast: HISTORY: Injury from a fall COMPARISON: 01/24/2018 FINDINGS: There is some minimal subarachnoid hemorrhage in the perimesencephalic cisterns and in the pontine ci sterns as well as a tiny amount of probable subdural blood along the anterior left tentorium. Large left frontal scalp hematoma. Atrophy and chronic white matter ischemic change. No focal mass or midline shift. IMPRESSION: Small amount of subarachnoid and probable tiny subdural hemorrhage around the ren and adjacent to th e medial left tentorium. Large left scalp hematoma. Findings were discussed with Viry Bradley at 11:00 PM
--- NOTE | 2018-09-16 23:13 | CT ---
EXAM: CT scan cervical spineWithout contrast: HISTORY: Injury from a fall COMPARISON: None FINDINGS: No evidence for acute fracture or facet dislocation. No significant malalignment. No prevertebral soft tissue swelling. Moderate generalized spondylosis most marked at C5-C6 with some associated canal, lateral recess, and foraminal stenosis. IMPRESSION: No evidence for acute fracture or facet dislocation or other significant acute process.
[2018-09-16 23:43] LABS: INR-International Normal Ratio 1.2; PTT 26.9 SEC (22.9-36.1); Prothrombin Time 14.8 SEC (12.0-14.7)
[2018-09-16 23:50] LABS: #Eosinphils 0.1 thou/uL (0.0-0.7); #Lymphocytes 1.3 thou/uL (1.20-3.40); #Monocytes 0.8 thou/uL (0.11-0.59); #Neutrophils 10.1 thou/uL (1.40-6.50); %Basophils 0.1 % (0.0-1.0); %Lymphocytes 10.8 % (21.0-51.0); %Monocytes 6.6 % (0.0-10.0); %Neutrophils 81.5 % (42.0-75.0); Hemoglobin 11.3 g/dL (14.0-18.0); Mean Corpuscular HGB CONC 33.1 g/dL (32.0-36.0); Mean Corpuscular Hemoglobin 30.9 pg (27.0-31.0); Mean Corpuscular Volume 93.5 fL (78.0-98.0); Mean Platelet Volume 10.3 fL (7.4-10.4); Platelet Count 153 thou/uL (130-400); RBC Distribution Width 16.5 % (11.5-14.5); Red Blood Cell (RBC) Count 3.65 mill/uL (4.70-6.10); White Blood Cell (WBC) Count 12.3 thou/uL (4.8-10.8)
[2018-09-16 23:57] LABS: ALT (SGPT) 11 U/L (8-55); AST (SGOT) 12 U/L (5-34); Albumin 3.6 g/dL (3.4-4.8); Alkaline Phosphatase 111 U/L (40-150); Anion Gap 11 mmol/L (10-20); BUN (Urea Nitrogen) 19 mg/dL (8.4-25.7); Bilirubin, Total 0.4 mg/dL (0.2-1.2); Calc. Creatinine Clearance 0 mL/min (70-130); Calcium 8.7 mg/dL (7.8-10.44); Carbon Dioxide 24 mmol/L (23-31); Chloride 107 mmol/L (98-107); Estimated GFR-MDRD 74; Globulin 2.5 g/dL (2.4-3.5); Glucose 94 mg/dL (83-110); Protein, Total 6.1 g/dL (5.8-8.1); Sodium 138 mmol/L (136-145)
[2018-09-17] MEDS ORDERED: Ondansetron PF 4 MG/2 ML Vial IVP PRN (01:02)
[2018-09-17] MEDS ORDERED: Dextrose 50% Abboject 50 ML SYRINGE SLOW IVP PRN (01:02)
[2018-09-17] MEDS ORDERED: Dextrose 5% in Water 1,000 ML IV PRN (01:02)
[2018-09-17] MEDS ORDERED: hydrALAZINE 20 MG/ML VIAL SLOW IVP PRN (01:02)
[2018-09-17] MEDS ORDERED: Ondansetron ODT 4 MG TAB PO PRN (01:02)
[2018-09-17 01:08] VITALS: BMI 22.1
[2018-09-17] MEDS ORDERED: Acetaminophen 1,000 MG in Premix Bag 1 BAG IVPB SCH (01:15)
--- NOTE | 2018-09-17 01:54 | HP ---
REQUESTING PHYSICIAN: Dr. Dial. ATTENDING SURGEON: Dr. Dennison. CONSULTATIONS: Neurosurgery, Dr. Ortiz. HISTORY OF PRESENT ILLNESS: The patient is an 82-year-old man who had a ground level fall at his senior care. He was brought to the emergency department where he underwent evaluation and examination and was noted to have left forehead contusion, subarachnoid hemorrhage and a left clavicle fracture. Of note, the patient is on Plavix. Platelets were ordered in the emergency department and he will be admitted to the [facility] for serial exams and a repeat head CT in the morning. The patient's history is gleaned from senior care paperwork. His baseline from his dementia is A and O x1. There was by EMS report no loss of consciousness. ALLERGIES: NONE. CURRENT MEDICATIONS: 1. Plavix. 2. Atorvastatin. 3. Aspirin. 4. Tamsulosin. 5. Amiodarone. 6. Famotidine. 7. Zoloft. 8. Seroquel. 9. Proscar. PAST MEDICAL HISTORY: Atrial fibrillation, acute heart failure, osteoarthritis, COPD, BPH, GERD, ischemic CVA and dementia. PAST SURGICAL HISTORY: Pacemaker/defibrillator. SOCIAL HISTORY: There is no reported history of drug, tobacco or alcohol use. The patient is a resident of a senior care. A 10-point review of systems is negative as otherwise stated. PHYSICAL EXAMINATION: VITAL SIGNS: Blood pressure 149/87, heart rate 64, respirations 17, oxygen saturation 97% on room air and temperature is 97.4. GENERAL: The patient is resting comfortably in bed. He is awake and responsive, confused but appropriately interactive and follows commands. Leann Coma Scale is 14, -1 for confusion. HEENT: The patient is noted to have contusion and ecchymosis on the left forehead. Remainder of his head is atraumatic and nontender. Eyes, extraocular motion intact. PERRLA bilaterally. Ears are atraumatic without discharge. Nose atraumatic without discharge. Oropharynx is clear. NECK: Nontender. Trachea is midline. No JVD. CHEST: Clear to auscultation with good inspiratory and expiratory effort. Chest has tenderness to palpation of the left clavicle and shoulder. HEART: Rhythm is slightly irregular with a regular rate. ABDOMEN: Soft, flat, nontender with active bowel sounds. PELVIS: Stable. EXTREMITIES: Neurovascularly intact x4. Small contusion noted on both forearms and tenderness to palpation of the left shoulder. BACK: Atraumatic and nontender. LABORATORY FINDINGS: White blood cell count 12.3, hemoglobin 11.3, hematocrit 34.2, platelets 153. Sodium 138, potassium 4.0, chloride 107, CO2 of 24, BUN 19, creatinine 0.97, glucose 94. LFTs are unremarkable. PT 15, INR 1.2, PTT 27. RADIOGRAPHIC FINDINGS: CT of the brain without contrast shows small amount of subarachnoid and probably tiny subdural hemorrhage around the ren and adjacent to the medial left tentorium and a large left scalp hematoma. CT of the C-spine without contrast shows no evidence of acute fracture or facet dislocation or other significant acute process. Views of the left clavicle show a distal clavicle fracture. Views of the right forearm show no acute fracture or dislocation. ASSESSMENT: 1. Status post ground level fall, on Plavix. 2. Subarachnoid hemorrhage. 3. Possible subdural hemorrhage. 4. Forehead contusion. 5. Left clavicle fracture. 6. Multiple upper extremity contusions. 7. Multiple comorbidities. PLAN: Plan will be to admit the patient to the [facility] for serial exams. We will have a repeat head CT in the morning. Platelets will be administered. The patient will have nonnarcotic pain control, pulmonary toilet, gastritis and mechanical VTE prophylaxis. He will be able to have a clear liquid diet. We will hold his Plavix and resume his other home medications as soon as they are in our system. The patient at time of dictation has been evaluated by Neurosurgery and facilitated development of his plan. The evaluation, examination, laboratory and radiographic findings will be discussed with Dr. Dennison after this dictation. Of note, the patient's EKG and cardiac enzymes are still pending at this time. Job ID: [id number]
[2018-09-17 02:04] LABS: Troponin I Less than 0.010 ng/mL (< 0.028)
[2018-09-17 06:34] LABS: INR-International Normal Ratio 1.2; Prothrombin Time 15.1 SEC (12.0-14.7)
[2018-09-17 06:44] LABS: #Eosinphils 0.1 thou/uL (0.0-0.7); #Lymphocytes 1.1 thou/uL (1.20-3.40); #Monocytes 0.8 thou/uL (0.11-0.59); #Neutrophils 6.8 thou/uL (1.40-6.50); %Basophils 0.2 % (0.0-1.0); %Eosinophils 1.1 % (0.0-10.0); %Lymphocytes 12.4 % (21.0-51.0); %Monocytes 8.5 % (0.0-10.0); %Neutrophils 77.8 % (42.0-75.0); Hemoglobin 11.1 g/dL (14.0-18.0); Mean Corpuscular HGB CONC 32.8 g/dL (32.0-36.0); Mean Corpuscular Hemoglobin 30.6 pg (27.0-31.0); Mean Corpuscular Volume 93.4 fL (78.0-98.0); Mean Platelet Volume 10.2 fL (7.4-10.4); Platelet Count 153 thou/uL (130-400); RBC Distribution Width 16.4 % (11.5-14.5); Red Blood Cell (RBC) Count 3.63 mill/uL (4.70-6.10); White Blood Cell (WBC) Count 8.8 thou/uL (4.8-10.8)
[2018-09-17 06:45] LABS: Anion Gap 10 mmol/L (10-20); BUN (Urea Nitrogen) 16 mg/dL (8.4-25.7); Calc. Creatinine Clearance 60 mL/min (70-130); Calcium 8.8 mg/dL (7.8-10.44); Carbon Dioxide 27 mmol/L (23-31); Chloride 107 mmol/L (98-107); Estimated GFR-MDRD 75; Glucose 85 mg/dL (83-110); Potassium 4.2 mmol/L (3.5-5.1); Sodium 140 mmol/L (136-145)
[2018-09-17] MEDS: Acetaminophen 500 MG TAB PO SCH ×3 (07:00→18:36)
--- NOTE | 2018-09-17 07:06 | CT ---
CT HEAD NONCONTRAST: Date: 09/17/18 COMPARISON: Previous day. INDICATION: Subarachnoid hemorrhage, follow-up. FINDINGS: Slight increase in volume of extra-axial hemorrhage about the basal cisterns and insinuating along th e anterior aspect of the cerebellar tentorium. No new mass effect or midline shift. There is parenchy mal atrophy with chronic ischemic disease and compensatory dilatation of ventricular system. There is a newly developed small focus of extra-axial hemorrhage overlying the anterior right parieta l convexity. IMPRESSION: 1. Slight increased prominence of basal cistern extra-axial hemorrhage. 2. New focus of minimal acute extra-axial hemorrhage overlying the anterior right parietal convexity . Recommend continued imaging follow-up. POS: [facility]
--- NOTE | 2018-09-17 08:20 | RAD ---
LEFT CLAVICLE TWO VIEWS: History: Fall with clavicle pain. FINDINGS: There is a minimally displaced obliquely oriented distal clavicle fracture located just proximal to t he AC joint. There are arthritic changes of the AC joint. Humeral head is high riding suggesting unde rling chronic rotator cuff tear. IMPRESSION: Minimally displaced distal clavicle fracture. POS: [facility]
--- NOTE | 2018-09-17 08:34 | RAD ---
RIGHT FOREARM TWO VIEWS: History: Fall with forearm pain. FINDINGS: There are arthritic changes of the wrist. There are no signs of fracture. IMPRESSION: 1. No evidence of fracture. 2. Arthritic changes of the wrist. Slight increased distance between the scaphoid and lunate could in dicate a chronic underlying scapholunate ligament injury. Wrist films would be helpful as clinically indicated. POS: [facility]
[2018-09-17] MEDS ORDERED: Prevnar 13-Val Conj/PF 0.5 ML SYRINGE IM ONE (09:00)
[2018-09-17] MEDS: Famotidine 20 MG TAB PO SCH ×2 (09:14→20:43)
--- NOTE | 2018-09-17 10:57 | CON ---
DATE OF CONSULTATION: HISTORY OF PRESENT ILLNESS: Mr. Nobles is an 82-year-old male. He was brought to the emergency department from his [facility] due to a fall. The patient has history of dementia and is a very poor historian per EMS. Following this evening, the patient tripped and fell, hitting his head on the floor. He has a large hematoma on the left forehead. The patient denies loss of consciousness. The patient is on Plavix. Neurosurgery was consulted for subarachnoid hemorrhage and possible subdural hemorrhage, area around the ren and adjacent to the medial left tentorium. Upon entering the patient's hospital room, he is resting in his bed. He has a large left-sided frontal hematoma on the forehead. He does not appear to be distressed; however throughout my exam, he is unable to answer questions related to how he is feeling most often, he has a little discomfort. He states he has some discomfort in his head, and when I tried to evaluate his upper extremity strength, he will not raise the left shoulder. There is some crepitus in the left clavicle, in which we obtained an x-ray and there is a fracture. Otherwise, the patient is able to move all extremities. Normal strength in the upper and lower extremities. Unable to test left upper arm warpman strength and biceps and triceps strength. The patient also has laceration on the right forearm. REVIEW OF SYSTEMS: A 10-point review of systems has been completed and is negative other than stated in the above HPI. ALLERGIES: NO KNOWN DRUG ALLERGIES. MEDICATIONS: 1. Plavix. 2. Atorvastatin. 3. Aspirin. 4. Tamsulosin. 5. Amiodarone. 6. Famotidine. 7. Zoloft. 8. Seroquel. 9. Proscar. PAST MEDICAL HISTORY: Cardiac history; myocardial infarction, dementia, ischemic cerebrovascular accident, ROSC, AFib, GERD, BPH, AHF, OA, COPD, history of left hip fracture. PAST SURGICAL HISTORY: Left hip. He has what appears to be a pacemaker, but the patient does not remember the name of the surgery and it is not in his [facility] paperwork. SOCIAL HISTORY: The patient denies alcohol, drugs, or smoking history. PHYSICAL EXAMINATION: VITAL SIGNS: Blood pressure 149/87, heart rate 64, respirations 17, O2 saturation 97% on room air. CONSTITUTIONAL: The patient is alert and oriented to person and place. He is confused about many many things, and will stop in mid sentence because he loses train of thought. He is afebrile, normotensive, and appears nontoxic. HEENT: Head has a large approximately 5 x 3 cm hematoma on the left inferior forehead, normocephalic. Pupils are equal, round, and reactive to light. Extraocular movements are intact. Hearing is intact. Moist mucous membrane, discharge dried on eyelids. NECK: Range of motion is normal, painful, and nontender. RESPIRATIONS: Normal work of breathing on room air. Symmetric chest rise. EXTREMITIES: Upper extremities; he has abrasion on the right forearm and has crepitus in the left shoulder along the lateral aspect of the clavicle area. He has good warpman strength and bilateral normal biceps and triceps strength. The patient is unable to raise shoulder on the left, but has good motion on the right foot. Lower extremities; there is 2+ pitting edema on the left lower extremity and 1+ pitting edema on the right lower extremity. The patient has normal strength and sensation, bilateral hip flexion, knee flexion, dorsiflexion, plantar flexion. NEUROLOGIC: Speech is spontaneous and fluent. He is alert and oriented x2. He is aware that he is in the hospital, not sure which hospital. Cranial nerves 2 through 12 are intact. There is no sensory or motor deficits noted given his limited and confusion. IMAGING DATA: 1. CT of the brain shows small amount of subarachnoid, probably tiny subdural hemorrhage around the ren and adjacent to the medial left tentorium. Large left scalp hematoma. 2. CT of the cervical spine. There is no evidence of acute fracture or facet dislocation or other significant acute process. 3. Clavicle x-ray reveals clavicle fracture. ASSESSMENT AND PLAN: Mr. Nobles is an 82-year-old male, who fell, striking his head on the ground sustained small subarachnoid hemorrhage; however, he is on Plavix. The patient also has some abrasions, very large hematoma on the left side of the forehead and clavicular fracture. We would like to make sure that the patient has platelets, maintain systolic blood pressure below 150, head of the bed 30 degrees. We will get a repeat CT scan in the morning and neuro checks every 2 hours. Job ID: [id number]
--- NOTE | 2018-09-17 11:53 | PRG ---
DATE OF SERVICE: 09/17/2018 I personally interviewed and examined the patient and reviewed records and imaging and agreed with documentation of Luann Walker PA-C, dated 09/17/2018. Briefly, Daniel Nobles is an 82-year-old gentleman who by report has a history of dementia. He arrived to the emergency department yesterday after a fall. CT examination of the brain overnight revealed some traumatic subarachnoid blood in the ambient cistern. The scan was repeated in early hours of the morning showing slightly increased amount of traumatic subarachnoid blood, but nothing causing mass effect or turned to be worrisome. Mr. Nobles is on Plavix at home. Overnight, Mr. Nobles has been watched in our intermediate care unit. He was wide awake as I entered the room. He says hello to me and answers questions. He is not sure what happened to him and he is not sure exactly where he is, but he is conversant. He moves all 4 extremities. There is no lateralizing motor or sensory deficit that I can appreciate. No neglect. CT imaging this morning did show slight increase in size of the traumatic subarachnoid blood in the ambient cistern. We are waiting for followup images to show stability. Once the hemorrhage is stable, we will consider disposition, which would likely include discharge tomorrow. So long as he is safe with activities of daily living, that arrangement plan will hold. Job ID: [id number]
--- NOTE | 2018-09-17 15:12 | PRG ---
DATE OF SERVICE: 09/17/2018 Mr. Nobles is an 82-year-old man status post ground level fall while on anti-platelet therapy. The patient sustained a small intracerebral hemorrhage, which is being managed nonoperatively. Repeat CT scan of the brain today shows a slightly increased basal cistern extra-axial hemorrhage with no mass effects. New small anterior right parietal cerebral hemorrhage is also noted. The patient has remained neurologically stable. Leann coma scale today is noted at E4, V4, M6. He has no focal neurologic deficits present. OBJECTIVE: VITAL SIGNS: Today include blood pressure 100/53, pulse is 60, respiratory rate is 18, temperature is 98.5 degrees Fahrenheit, oxygen saturation is 99% on room air. HEENT: Pupils are equal, round, reactive to light and accommodation. HEART: Reveals regular rate and rhythm. No murmurs or gallops auscultated. LUNGS: Clear to auscultation bilaterally. Breathing, regular and nonlabored. ABDOMEN: Soft, nontender, nondistended. MUSCULOSKELETAL: Reveals 5/5 muscle strength in bilateral upper and lower extremities. NEUROLOGICAL: The patient has no focal neurologic deficits present. LABORATORY FINDINGS: Today include a CBC with 8800 white blood cells. Hemoglobin and hematocrit stable at 11.1 and 33.9 respectively. Platelet count is also stable at 153,000. Metabolic profile: Sodium 140, potassium 4.2, chloride is 107, bicarb is 27, BUN 16, creatinine 0.96, glucose is 85. IMPRESSIONS: Post injury today 1. Status post ground level fall. 2. Acute small intracerebral hemorrhage. 3. Qualitative platelet dysfunction secondary to aspirin and Plavix. PLAN: 1. Increase activity per Physical and Occupational Therapy. 2. Advance diet as tolerated. 3. We will keep the patient in the step-down unit for another 24 hours and consider transfer to general surgical floor if no adverse change with regard to neurological or hemodynamic function. Above findings and plan discussed with the patient, who indicates understanding of information given. I have answered his questions. Job ID: [id number]
[2018-09-18] MEDS: Acetaminophen 500 MG TAB PO SCH ×4 (00:24→17:54)
--- NOTE | 2018-09-18 07:28 | PRG ---
DATE OF SERVICE: 09/18/2018 I saw Daniel Nobles in his intermediate care unit bed this morning. He is resting comfortably as I entered the room and the nurses advised bedside. I introduced myself again and he tells me he remembers me from yesterday. He does not have any complaints. The T-max recorded is 99.2. Over the last 24 hours, blood pressures have been in the 120s to 130s. On examination, Mr. Nobles is wide awake. He answers questions appropriately. He is confused as to the events surrounding his admission and had to be reminded that he took a fall and injured himself. I do not find any lateralizing motor or sensory deficits or neglect. CT imaging of the brain showed a slight increase in size of the subarachnoid hemorrhage in the ambient cistern, a tiny amount of subarachnoid blood over the parietal convexity on the right side. None of this causes mass effect or is life-threatening, but it continues to slowly increase in size. My plan for Mr. Nobles is to have 2 consecutive CAT scans with the exact same amount of blood on them. I would like to re-scan him this afternoon or this evening and if imaging look stable, then to discharge him the following day. He can get in and out of bed with assistance. We can ensure that he is safe for activities of daily living in preparation for discharge when imaging is stable. He should remain off Plavix for 2 weeks. We will rescan him in the office. Job ID: [id number] MTDD
--- NOTE | 2018-09-18 08:42 | CT ---
CT HEAD NONCONTRAST: INDICATIONS: Intracranial hemorrhage. Fall. FINDINGS: Redemonstration of extraaxial hemorrhage within the bilateral posterior basal cisterns and approximat ing the cerebellar tentorium, grossly stable in volume. Redemonstration of small volume extraaxial h emorrhage overlying the right parietal convexity. Prominent left scalp hematoma remains. The ventri cular system is stable in volume. IMPRESSION: Stable head CT with multifocal areas of intracranial hemorrhage, demonstrating a similar imaging appe arance. Recommend continued imaging followup. POS: [facility]
[2018-09-18] MEDS: Famotidine 20 MG TAB PO SCH ×3 (09:19→20:48)
--- NOTE | 2018-09-18 16:25 | CT ---
CT HEAD WITHOUT CONTRAST: 09/18/18 INDICATIONS: Follow-up hemorrhage. Subarachnoid hemorrhage. COMPARISON: Comparison made to recent scan earlier today at 8:08 a.m. Subarachnoid blood is again noted in the basilar cisterns posteriorly to the brain stem, similar in a ppearance to the prior exam. No new hemorrhage or significant interval change apparent. IMPRESSION: Stable findings from the CT scan of head earlier today. POS: [facility]
[2018-09-18 20:29] VITALS: BP 130/72
--- NOTE | 2018-09-18 20:58 | PRG ---
DATE OF SERVICE: 09/18/2018 SUBJECTIVE: The patient is currently on the IMCU. He is status post ground level fall and sustained a small intracerebral hemorrhage that was complicated by the fact that he is on Plavix and aspirin. He has undergone repeat head CTs, which did show small increase in the volume of hemorrhage, and he was kept another night and had a repeat head CT this morning, which appeared to be stable, and per Neurosurgery, he will have yet another head CT to establish this stability. Overnight, the patient had no issues. He appears at baseline. He is following commands, tolerating a diet and has no complaints at this time. OBJECTIVE: VITAL SIGNS: Temperature 99.5, heart rate 55, blood pressure 131/76, and oxygen saturation is 95% on room air. GENERAL: The patient is resting comfortably in bed. He appears at baseline with being alert and oriented x1. He is conversant and appropriate. HEENT: Unremarkable. LUNGS: Clear to auscultation bilaterally. HEART: Regular rate and rhythm. ABDOMEN: Soft, flat, and nontender with active bowel sounds. EXTREMITIES: Neurovascularly intact x4. LABORATORY DATA: There are no labs to review this morning. CT of the brain without contrast shows a stable head CT with multifocal areas of intracranial hemorrhage, demonstrating a similar imaging appearance. ASSESSMENT: 1. Status post ground level fall. 2. Acute small intracerebral hemorrhage, on Plavix, stable. PLAN: Will be to continue supportive care, physical and occupational therapy, and per Neurosurgery's plan, the patient will get a repeat head CT today and will most likely be ready [facility] We resumed all his home medications with the exception of his aspirin and Plavix. Evaluation and examination were done with Dr. De Anda this morning during rounds. Job ID: [id number]
[2018-09-18] MEDS ORDERED: Atorvastatin Calcium 20 MG TAB PO SCH (21:00)
[2018-09-19] MEDS: Acetaminophen 500 MG TAB PO SCH ×3 (00:21→13:45)
[2018-09-19] MEDS ORDERED: Amiodarone 200 MG TAB PO SCH (09:00)
[2018-09-19] MEDS ORDERED: Finasteride 5 MG TAB PO SCH (09:00)
[2018-09-19] MEDS ORDERED: Tamsulosin HCl 0.4 MG CAP PO SCH (09:00)
[2018-09-19] MEDS: Famotidine 20 MG TAB PO SCH ×2 (09:15)
[2018-09-19 11:05] VITALS: TEMP 99.1
--- NOTE | 2018-09-19 11:49 | PRG ---
DATE OF SERVICE: 09/19/2018 Mr. Nobles is an 82-year-old male, admitted approximately 3 days ago with fall and imaging, which revealed the presence of traumatic subarachnoid hemorrhage. This hemorrhage has been relatively stable on imaging as his neurologic exam. I do not foresee a need for neurosurgical intervention. The Neurosurgical Service will sign off and arrange appropriate outpatient followup. Job ID: [id number]
== END 2018-09-19 14:53 | disposition home or self-care (01) | DRG 87 ==
LOC: ERS 21:59 → IMCU/EMU 09-17 00:49
PROVIDERS: ADMIT Specialist; ATTEND Specialist
DX: S06.6X0A Traumatic subarachnoid hemorrhage without loss of consciousness, initial encounter (principal); S42.002A Fracture of unspecified part of left clavicle, initial encounter for closed fracture; W01.0XXA Fall on same level from slipping, tripping and stumbling without subsequent striking against object, initial encounter; Y92.129 Unspecified place in nursing home as the place of occurrence of the external cause; S00.83XA Contusion of other part of head, initial encounter; S41.112A Laceration without foreign body of left upper arm, initial encounter; F03.90 Unspecified dementia, unspecified severity, without behavioral disturbance, psychotic disturbance, mood disturbance, and anxiety; N40.0 Benign prostatic hyperplasia without lower urinary tract symptoms; D69.1 Qualitative platelet defects; I48.91 Unspecified atrial fibrillation; K21.9 Gastro-esophageal reflux disease without esophagitis; M19.90 Unspecified osteoarthritis, unspecified site; J44.9 Chronic obstructive pulmonary disease, unspecified; Z79.02 Long term (current) use of antithrombotics/antiplatelets; I25.2 Old myocardial infarction; Z95.0 Presence of cardiac pacemaker; Z79.82 Long term (current) use of aspirin; Z79.899 Other long term (current) drug therapy
CPT/HCPCS: 36415; 70450; 72125; 80048; 80053; 84484; 85025; 85610; 85730; 86850; 86900; 86901; 90471; 90715; 93005; 93010; G0390; J0131

== ENCOUNTER 2018-10-08 08:25 | Outpatient (CLI) | payer MEDICARE ==
--- NOTE | 2018-10-08 09:09 | CT ---
CT head without contrast: INDICATIONS: Follow-up subarachnoid hemorrhage COMPARISON: 09/18/2018 FINDINGS: Cortical atrophy again noted. Subarachnoid blood seen in the superior cerebellar cistern an d the paramesencephalic cistern posterior to the brainstem on prior study is no longer apparent. No evidence of hemorrhage today. No mass, edema, or infarct. IMPRESSION: No evidence of hemorrhage seen on today's exam.
== END 2018-10-08 08:26 | disposition home or self-care (01) ==
LOC: TBSIIMAG 08:25
PROVIDERS: ATTEND Neurological Surgery
DX: I62.00 Nontraumatic subdural hemorrhage, unspecified (principal)
CPT/HCPCS: 70450

== ENCOUNTER 2018-11-16 19:22 | Inpatient (IN) | payer MEDICARE ==
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
[2018-11-16 21:20] LABS: Hemoglobin 12.8 g/dL (14.0-18.0); Mean Corpuscular Volume 93.2 fL (78.0-98.0); Red Blood Cell (RBC) Count 4.32 mill/uL (4.70-6.10); White Blood Cell (WBC) Count 11.8 thou/uL (4.8-10.8)
[2018-11-16 21:21] LABS: #Eosinphils 0.2 thou/uL (0.0-0.7); #Lymphocytes 1.2 thou/uL (1.20-3.40); #Monocytes 0.8 thou/uL (0.11-0.59); #Neutrophils 9.7 thou/uL (1.40-6.50); %Basophils 0.2 % (0.0-1.0); %Eosinophils 1.3 % (0.0-10.0); %Monocytes 6.8 % (0.0-10.0); %Neutrophils 81.7 % (42.0-75.0); Mean Corpuscular HGB CONC 31.8 g/dL (32.0-36.0); Mean Corpuscular Hemoglobin 29.7 pg (27.0-31.0); Mean Platelet Volume 9.5 fL (7.4-10.4); Platelet Count 155 thou/uL (130-400); RBC Distribution Width 14.2 % (11.5-14.5)
[2018-11-16 21:27] LABS: INR-International Normal Ratio 1.1; PTT 29.1 SEC (22.9-36.1); Prothrombin Time 14.4 SEC (12.0-14.7)
[2018-11-16] MEDS ORDERED: Lidocaine 1% w/Epinephrine 1:100K 20 ML VIAL ONE (21:42)
[2018-11-16 21:43] LABS: ALT (SGPT) 13 U/L (8-55); AST (SGOT) 14 U/L (5-34); Albumin 3.7 g/dL (3.4-4.8); Alkaline Phosphatase 133 U/L (40-150); Anion Gap 11 mmol/L (10-20); BUN (Urea Nitrogen) 24 mg/dL (8.4-25.7); Bilirubin, Total 0.4 mg/dL (0.2-1.2); Calc. Creatinine Clearance 0 mL/min (70-130); Calcium 8.8 mg/dL (7.8-10.44); Carbon Dioxide 29 mmol/L (23-31); Chloride 104 mmol/L (98-107); Estimated GFR-MDRD 69; Globulin 2.8 g/dL (2.4-3.5); Glucose 96 mg/dL (83-110); Potassium 4.1 mmol/L (3.5-5.1); Protein, Total 6.5 g/dL (5.8-8.1); Sodium 140 mmol/L (136-145)
[2018-11-16] MEDS ORDERED: Acetaminophen 500 MG TAB ONE (21:47)
[2018-11-16] MEDS ORDERED: Promethazine HCl 25 MG/ML VIAL IM PRN (21:57)
[2018-11-16] MEDS ORDERED: hydrALAZINE 20 MG/ML VIAL SLOW IVP PRN (21:57)
[2018-11-16] MEDS ORDERED: Ondansetron PF 4 MG/2 ML Vial IVP PRN (21:57)
[2018-11-16] MEDS ORDERED: Dextrose 5% in Water 1,000 ML IV PRN (21:57)
[2018-11-16] MEDS ORDERED: Dextrose 50% Abboject 50 ML SYRINGE SLOW IVP PRN (21:57)
[2018-11-16] MEDS ORDERED: Morphine 2 MG/ML SYRINGE SLOW IVP PRN (21:57)
[2018-11-16] MEDS ORDERED: traMADol HCl 50 MG TAB PO PRN (22:03)
[2018-11-16] MEDS: Sodium Chloride 0.9% 1,000 ML IV SCH (23:52)
[2018-11-16] MEDS: Acetaminophen 1,000 MG in Premix Bag 1 BAG IVPB SCH (23:53)
[2018-11-17 01:03] VITALS: BMI 21.4
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
[2018-11-17] MEDS: Acetaminophen 1,000 MG in Premix Bag 1 BAG IVPB SCH ×2 (05:06→11:21)
--- NOTE | 2018-11-17 06:50 | CT ---
CT HEAD WITHOUT CONTRAST: INDICATIONS: Traumatic brain injury. Followup. COMPARISON: Exam from the previous day. FINDINGS: Redemonstration of extraaxial hemorrhage, predominantly subarachnoid in distribution, overlying the b ilateral frontal lobes, and insinuating along the anterior aspect of the corpus callosum and septum p ellucidum. There is dependent intraventricular hemorrhage, increasing in volume. The added density in the extraaxial space, overlying the left parietal lobe, in a probable subdural configuration, now measures 5 mm in thickness. Adjacent subarachnoid hemorrhage in this region is mild in volume. The right frontal scalp hematoma is redemonstrated. There is opacification of the left sphenoid sinus, p redominantly fluid, progressive from recent examination. This does relate to a partially imaged frac ture deformity at the left lateral orbital wall, and there is overlying left periorbital hematoma/fac ial contusion. IMPRESSION: 1. Scattered subarachnoid hemorrhage present, extraaxial and intraventricular in location, with inte rval redistribution and slight volume progression demonstrated. 2. Progressive fluid volume of left major sphenoid air cell, related to left orbital trauma, incompl etely imaged on the basis of this exam, although relates to a comminuted fracture of the lateral left orbital wall. RECOMMENDATIONS: Recommended continued short-term imaging followup. POS: ADAL
[2018-11-17] MEDS ORDERED: Famotidine/PF 20 mg/2ml Vial SLOW IVP SCH (09:00)
[2018-11-17] MEDS ORDERED: Amiodarone 200 MG TAB PO SCH (09:00)
[2018-11-17 10:22] VITALS: BP 120/65
[2018-11-17 10:23] VITALS: TEMP 98.1
[2018-11-17] MEDS: Sodium Chloride 0.9% 1,000 ML IV SCH (11:23)
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
== END 2018-11-17 17:48 | DRG 87 ==
LOC: ERS 19:22 → IMCU/EMU 23:10
PROVIDERS: ADMIT Surgery; ATTEND Surgery
PROC: 0HQ1XZZ Repair Face Skin, External Approach (ICD-10-PCS; principal; 2018-11-16)
DX: S06.6X0A Traumatic subarachnoid hemorrhage without loss of consciousness, initial encounter (principal); S00.83XA Contusion of other part of head, initial encounter; S51.012A Laceration without foreign body of left elbow, initial encounter; S61.512A Laceration without foreign body of left wrist, initial encounter; Y08.89XA Assault by other specified means, initial encounter; Y92.9 Unspecified place or not applicable; S05.10XA Contusion of eyeball and orbital tissues, unspecified eye, initial encounter; F03.90 Unspecified dementia, unspecified severity, without behavioral disturbance, psychotic disturbance, mood disturbance, and anxiety; M19.90 Unspecified osteoarthritis, unspecified site; I50.9 Heart failure, unspecified; F32.9 Major depressive disorder, single episode, unspecified; I44.7 Left bundle-branch block, unspecified; E78.5 Hyperlipidemia, unspecified; N40.0 Benign prostatic hyperplasia without lower urinary tract symptoms; I48.91 Unspecified atrial fibrillation; J44.9 Chronic obstructive pulmonary disease, unspecified; K21.9 Gastro-esophageal reflux disease without esophagitis; I25.5 Ischemic cardiomyopathy; Z79.899 Other long term (current) drug therapy; Z95.0 Presence of cardiac pacemaker; Z79.82 Long term (current) use of aspirin
CPT/HCPCS: 36415; 36416; 70450; 70486; 80053; 85025; 85610; 85730; G0390; J0131; J2001; S0028

== ENCOUNTER 2018-12-15 14:53 | Outpatient (CLI) | payer MEDICARE ==
--- NOTE | 2018-12-15 15:19 | CT ---
Head CT without contrast: 12/15/2018 COMPARISON: 11/17/2018 HISTORY: Reevaluate subdural/intracranial hemorrhage TECHNIQUE: Axial CT imaging at 4.5 mm intervals from vertex through skull base without contrast FINDINGS: The most recent prior examination demonstrated diffuse bilateral subarachnoid hemorrhage, l eft greater than right, as well as a small left-sided subdural hematoma. On this examination the previously noted intracranial hemorrhage has resolved. No residual intracranial hemorrhage is appreci ated on this examination. There is mild diffuse cerebral volume loss with associated prominence of the CSF containing spaces. The imaged paranasal sinuses/mastoid air cells are well aerated. There is no displaced calvarial frac ture. A lateral orbital wall fracture is again seen on the left. IMPRESSION: Interval resolution of previously noted intracranial hemorrhage.
== END 2018-12-15 14:54 | disposition home or self-care (01) ==
LOC: TBSIIMAG 14:53
PROVIDERS: ATTEND Neurological Surgery
DX: S06.6X0D Traumatic subarachnoid hemorrhage without loss of consciousness, subsequent encounter (principal)
CPT/HCPCS: 70450